=== PATIENT | male | born 1975 | race Caucasian/White ===

== ENCOUNTER 2016-08-03 11:31 | Inpatient (IN) ==
[2016-08-03] MEDS ORDERED: Ondansetron 4 MG/2 ML VIAL IVP PRN (15:00)
[2016-08-03] MEDS ORDERED: Naloxone 0.4 MG/ML INJ IVP PRN (15:00)
[2016-08-03] MEDS ORDERED: *HR* Morphine 2 MG/ML SYRINGE IVP PRN (15:00)
[2016-08-03] MEDS ORDERED: Acetaminophen 325 MG TABLET PO PRN (15:00)
[2016-08-03] MEDS ORDERED: Levofloxacin 500 MG/100 ML 500 MG/100 ML BAG IVPB ONE (15:02)
--- NOTE | 2016-08-03 15:09 | Internal Med History&Physical ---
Date of Encounter: 08/03/16 Time of Encounter: 15:09 Assessment and Plan (1) Healthcare-associated pneumonia Current visit: Yes Status: Acute Patient presents with cough, chest congestion and shortness of breath. Chest x- ray shows right basal infiltrates, per ER study, image not available. Continue broad-spectrum IV antibiotics and de-escalate after blood culture results. Continue supplemental oxygen. Supportive care. (2) Hyperkalemia Current visit: Yes Status: Acute Patient noted to have serum potassium of 6, received medical treatment with albuterol, D50, insulin and calcium gluconate in the emergency room. Repeat potassium is noted to be 6.6, will give 30 g Kayexalate at this time. Patient is at risk for ventricular arrhythmias from hyperkalemia, continue telemetry monitoring. (3) Chronic CHF Current visit: Yes Status: Chronic Qualifiers: Congestive heart failure type: diastolic Qualified Code(s): I50.32 - Chronic diastolic (congestive) heart failure (4) Essential hypertension Current visit: Yes Status: Chronic (5) ESRD (end stage renal disease) on dialysis Current visit: Yes Status: Chronic Nephrology consulted for continued hemodialysis needs while in the hospital. (6) Hyperlipidemia Current visit: Yes Status: Chronic Qualifiers: Hyperlipidemia type: mixed hyperlipidemia Qualified Code(s): E78.2 - Mixed hyperlipidemia Internal Medicine - H&P: HPI Chief complaint: Cough, chest pain Admitted From: Emergency Dept Plans for Post Hospital Care: Home History of present illness: Mr. Steele is a 41 year old male with history of end-stage renal disease on hemodialysis, hypertension was sent from [facility] ER with complaints of cough and shortness of breath. Patient is currently very drowsy due to having a bad night 's sleep and receiving morphine for chest pain, but is able to provide some history. Patient has had no missed sessions of hemodialysis in the last week. He started having dry hacking cough associated with dyspnea, worse on exertion that he reports only started yesterday. His symptoms were associated with retrosternal chest pain, worse on coughing, 5/10 in intensity, nonradiating, burning type of chest pain, currently relieved with IV morphine received in the emergency room. His chest pain only started this morning and is currently resolved. No reported fever, chills, palpitations, leg swelling, nausea or vomiting. No dizziness or syncope. Past Med Surg Social Fam HX - Past Medical History Medical history: CHF (Chronic diastolic CHF), dialysis, hyperlipidemia, hypertension, renal disease, valvular heart disease Psychiatric history: no psych history - Past Surgical History Surgical History: appendectomy, cholecystectomy, other (Left forearm AV fistula) - Social History Smoking Status: Never smoker Smokeless Tobacco Status: No Alcohol use: none Drug use: none Occupational status: disabled Current living situation: Home, With Family Activity Level: Independent ambulation Recent Out of Country Travel Within the Last 8 Weeks: No Exposure or Possible Exposure to Illness During Travel: No - Family History Father Hx Family Cardiac Disorders: Yes (Coronary artery disease) Internal Medicine - H&P: Meds Oxycodone HCl/Acetaminophen [Percocet 7.5-325 mg Tablet] 1 tab PO Q6H PRN [History] TraMADol [Ultram] 50 mg PO QID PRN 12/30/15 [History] Carvedilol [Coreg] 25 mg PO BID #60 tablet 01/01/16 [Rx] Gabapentin [Neurontin] 800 mg PO QID PRN 03/21/16 [History] Amlodipine [Norvasc] 5 mg PO BID 08/04/16 [History] Aspirin 81 mg PO DAILY 08/04/16 [History] B Complex W-C No.20/Folic Acid [Nephrocaps Softgel] 1 mg PO DAILY 08/04/16 [ History] Esomeprazole Magnesium [Nexium] 40 mg PO DAILY 08/04/16 [History] Furosemide [Lasix] 40 mg PO BID 08/04/16 [History] Hydrochlorothiazide 25 mg PO DAILY 08/04/16 [History] Lisinopril [Zestril] 10 mg PO DAILY 08/04/16 [History] Megestrol Acetate [Megace] 40 mg PO BID 08/04/16 [History] Mycophenolate Sodium (DR) [Myfortic] 180 mg PO BID 08/04/16 [History] Sulfamethoxazole/Trimeth SS [Bactrim] 1 each PO MOWEFR 08/04/16 [History] Valsartan/Hydrochlorothiazide [Diovan Hct 160-25 mg Tablet] 1 each PO DAILY 04/12 [History] Zolpidem [Ambien] 10 mg PO HS PRN 08/04/16 [History] Allergies No Known Allergies Allergy (Verified 08/04/16 09:46) All Systems PM: A 10-system review of systems was performed and is negative for pertinent findings except as documented above in the HPI. - Constitutional Constitutional: no chills, no fever(s), no night sweats - EENT Eyes: no change in vision, no discharge, no pain, no photophobia Ears: no ear discharge, no ear pain, no tinnitus Nose, mouth and throat: no dysphagia, no nasal discharge, no neck pain, no sore throat - Cardiovascular Cardiovascular ROS IM: chest pain, edema - Respiratory Respiratory: cough, dyspnea, dyspnea on exertion, chest congestion - Gastrointestinal Gastrointestinal: no abdominal pain, no diarrhea, no hematemesis, no hematochezia, no melena, no nausea, no vomiting - Musculoskeletal Musculoskeletal ROS IM: no numbness, no tingling - Integumentary Integumentary IM: no rash, no unusual bruising - Neurological Neurological ROS: no confusion, no convulsions, no focal weakness, no numbness, no tingling, no tremor(s) - Hematologic/Lymphatic Hematologic/Lymphatic: no easy bruising - Head Head exam: Present: atraumatic, normocephalic - Eye Eye exam: Present: PERRL, conjuntiva pink, sclera anicteric Pupils: Present: PERRL - Neck Neck exam general surgery: Present: supple, trachea midline. Absent: lymphadenopathy - Respiratory Respiratory exam: Present: rales (Bibasal inspiratory crackles). Absent: accessory muscle use, rhonchi, wheezes - Cardiovascular Cardiovascular exam: Present: RRR, +S1, +S2, systolic murmur. Absent: diastolic murmur, gallop, rubs - GI/Abdominal GI/Abdominal exam: Present: normal bowel sounds, soft, no peritoneal signs. Absent: distended, tenderness - Extremities Exam Extremities exam: Present: warm, radial pulses palpable and symetrical. Absent : calf tenderness, cyanotic, pedal edema - Neurological Exam Neurological exam: Present: CN II-XII intact, oriented X3, no focal deficits. Absent: pronater drift, facial droop, speech deficit - Skin Skin exam: Present: dry, intact Internal Med - H&P Results - Labs CBC & Chem 7: 08/04/16 04:36 08/04/16 04:36 - EKG Data -: EKG Interpreted by Myself EKG shows normal: sinus rhythm - EKG Data EKG comments: 08/04/16 16:46 Normal sinus rhythm, left ventricular hypertrophy with repolarization abnormalities, peaked T waves in anterior and lateral leads, left atrial enlargement
[2016-08-03] MEDS ORDERED: Piperacillin/Tazobactam 3.375 GM in D5% in Water (Mini-Bag+) 100 ML IVPB SCH ×2 (16:00)
[2016-08-03] MEDS ORDERED: Vancomycin 1,250 MG in D5% in Water 250 ML IVPB ONE (16:00)
[2016-08-03 16:43] LABS: Calcium 8.9 mg/dL (8.6-10.8)
[2016-08-03 16:45] LABS: Potassium 6.6 mEq/L (3.5-4.5)
[2016-08-03] MEDS: Calcium Acetate 667 MG CAPSULE PO SCH (17:11)
[2016-08-03] MEDS: Piperacillin/Tazobactam 3.375 GM in D5% in Water (Mini-Bag+) 100 ML IVPB SCH (20:58)
[2016-08-03] MEDS: Gabapentin 400 MG CAPSULE PO SCH (20:59)
[2016-08-03] MEDS: amLODIPine 5 MG TABLET PO SCH (20:59)
[2016-08-03] MEDS: *HR* HYDROcodone/Acet 5/325 mg TABLET PO PRN (21:47)
[2016-08-04] MEDS ORDERED: *HR* Metoprolol 5 MG/5 ML VIAL IVP PRN (01:40)
[2016-08-04 05:11] LABS: Basophils # 0.1 K/mcL (0.0-0.2); Basophils % 0.8 %; Eosinophils # 0.3 K/mcL (0.0-0.6); Eosinophils % 3.4 %; Hematocrit 28.6 % (37.5-50.1); Hemoglobin 9.6 g/dL (12.9-16.9); Immature Granulocytes % 0.3 % (0-4); Lymphocytes # 0.8 K/mcL (0.6-4.6); Mean Corpuscular HGB Conc 33.6 g/dL (31.6-35.5); Mean Corpuscular Hemoglobin 28.9 pg (28.0-33.3); Mean Corpuscular Volume 86.1 fL (83.0-100.0); Mean Platelet Volume 9.4 fL (9.4-12.4); Monocytes # 0.8 K/mcL (0.0-1.3); Monocytes % 7.9 %; Neutrophils # 7.7 K/mcL (1.6-8.9); Platelet Count 203 K/mcL (140-400); Red Blood Count 3.32 M/mcL (4.19-5.50); Red Cell Distribution Width 15.6 % (11.5-14.5); Segmented Neutrophils % 79.6 %
[2016-08-04 05:27] LABS: Calcium 8.6 mg/dL (8.6-10.8); Potassium 5.3 mEq/L (3.5-4.5)
[2016-08-04] MEDS: *HR* Heparin 5,000 UNIT/ML VIAL SQ SCH ×2 (05:33→17:14)
[2016-08-04] MEDS ORDERED: *HR* Enoxaparin 40 MG/0.4 ML SYRINGE SQ SCH (06:00)
--- NOTE | 2016-08-04 08:15 | Nephrology Consult Note ---
Date of Encounter: 08/04/16 Time of Encounter: 08:13 Assessment and Plan (1) Benign hypertension with ESRD (end-stage renal disease) Current Visit: Yes Status: Acute Patient will receive dialysis today. He will be dialyzed on a 2K bath. On removal of 3-4 kg as tolerated. Aranesp will be started for management of his anemia. Following dialysis if his blood pressures not improve we may need to make additional adjustments in his antihypertensive medications. His blood pressure medication should not be held on dialysis days. (2) Anemia in chronic kidney disease (CKD) Current Visit: Yes Status: Acute (3) Nausea alone Current Visit: Yes Status: Acute (4) Pulmonary vascular congestion Current Visit: Yes Status: Acute (5) ESRD (end stage renal disease) on dialysis Current Visit: No Status: Chronic History of Present Illness - History of Present Illness This is a 41-year-old male with end-stage renal disease related to hypertension and a failed renal transplant. He receives dialysis every Thursday in [place]. Patient was admitted yesterday with 1 day history of nausea and headache. He denies any vomiting. He had some associated shortness of breath and chest discomfort. Today he says he feels better. He denies any nausea. He denies any shortness of breath or abdominal pain. Chest x-ray showed cardiomegaly and some vascular congestion. There is no infiltrate noted. Blood pressure has been labile. Patient does have a history of poorly controlled blood pressure due to poor compliance with medications. He also has a history of chronic hyperphosphatemia due to poor compliance. Patient denies any fever or chills. He denies any sputum production. Past Med Surg Social Fam HX - Past Medical History Medical history: CHF, dialysis, hypertension, renal disease, valvular heart disease Psychiatric history: no psych history - Past Surgical History Surgical History: appendectomy, cholecystectomy, other - Social History Smoking Status: Never smoker Smokeless Tobacco Status: No Alcohol use: none Drug use: none Medications and Allergies Oxycodone HCl/Acetaminophen [Percocet 7.5-325 mg Tablet] 1 tab PO Q8H PRN [History] TraMADol [Ultram] 50 mg PO QID PRN 12/30/15 [History] Amlodipine [Norvasc] 10 mg PO BID #60 tablet 01/01/16 [Rx] Calcium Acetate [Phos-LO] 2,668 mg PO TIDWM #90 capsule 01/01/16 [Rx] Carvedilol [Coreg] 25 mg PO BID #60 tablet 01/01/16 [Rx] Cinacalcet [Sensipar] 60 mg PO DAILY #30 tablet 01/01/16 [Rx] Isosorbide DInitrate [Isordil] 20 mg PO TIDAC 90 Days 01/01/16 [Rx] Minoxidil 5 mg PO BID #60 tablet 01/01/16 [Rx] Omeprazole [PriLOSEC] 40 mg PO DAILY@30 #30 capsule 01/01/16 [Rx] Darbepoetin [Aranesp] 60 mcg SQ QWEEK 03/21/16 [History] Gabapentin [Neurontin] 800 mg PO TID 03/21/16 [History] Sirolimus [Rapamune] 1 mg PO DAILY 03/21/16 [History] Losartan [Cozaar] 12.5 mg PO DAILY 30 Days 03/22/16 [Rx] Triamcinolone Acet 0.1% CRM [Kenalog] 1 appl TP BID 04/27/16 [History] Sulfamethoxazole/Trimeth DS [Bactrim DS] 1 each PO BID 10 Days 06/07/16 [Rx] Allergies No Known Allergies Allergy (Verified 04/27/16 17:01) Review of Systems Constitutional: as per HPI Eyes: bilateral: blurred vision (patient denies), diplopia (patient denies) Nose, mouth and throat: no dizziness, no headache(s) Cardiovascular: as per HPI, chest pain, dyspnea, dyspnea on exertion Respiratory: as per HPI, dyspnea, dyspnea on exertion Gastrointestinal: as per HPI, nausea Musculoskeletal: no muscle weakness, no numbness Integumentary: no hirsutism, no striae Neurological: as per HPI, headache(s) Psychiatric: no depression, no difficulty concentrating Endocrine: as per HPI Hematologic/Lymphatic: no easy bruising, no lymphadenopathy Exam - Vital Signs Vital signs: Initial Vital Signs Temp Pulse Resp BP Pulse Ox 97.6 F 91 16 167/115 97 08/03/16 16:03 08/03/16 16:03 08/03/16 16:03 08/03/16 16:03 08/03/16 16:03 Vital Signs - Last 8 Hours Temp Pulse Resp BP Pulse Ox 08/04/16 07:24 98.3 F 101 15 158/114 96 08/04/16 06:01 97.6 F 97 16 133/62 97 08/04/16 03:17 91 133/92 97 08/04/16 02:32 90 150/102 96 08/04/16 02:25 95 149/107 97 Intake and Output 08/03/16 08/04/16 08/04/16 23:59 07:59 15:59 Intake Total 340 / 340 300 / 300 Output Total 0 / 0 Balance 340 / 340 300 / 300 Intake: Oral 340 / 340 300 / 300 Output: Urine 0 / 0 Other: Meal Dinner Percent of Meal Consumed 95% # Bowel Movements 2 # Bowel Movement Diapers 4 - General Appearance Exam: The patient is alert and oriented. He is in no acute distress. Cards or bruits. Lungs essentially clear to auscultation. No wheezing rales or rhonchi. Heart regular rate and rhythm with a 2/6 systolic ejection murmur. Abdomen shows normal bowel sounds to bruits masses or organomegaly or tenderness. Lower extremities show no significant peripheral edema. There is a functioning AV fistula in the left arm. Results - Lab Results 08/04/16 04:36 08/04/16 04:36 Most recent lab results Calcium 8.6 mg/dL (8.6-10.8) 08/04/16 04:36 Consult Discharge Plan - Plan Referrals: Sanjuana Miner MD [Primary Care Provider] -
[2016-08-04] MEDS ORDERED: 0.9 % Sodium Chloride 250 ML IV PRN (08:19)
--- NOTE | 2016-08-04 08:25 | Internal Med Progress Note ---
Date of Encounter: 08/04/16 Time of Encounter: 08:24 - Assessment and plan (1) Healthcare-associated pneumonia Current Visit: Yes Status: Acute Assessment and plan: f/up blood cultures and continue IV antibiotics; improving clinically; continue PRN supplemental O2; (2) Anemia in chronic kidney disease (CKD) Current Visit: Yes Status: Chronic (3) Hyperkalemia Current Visit: Yes Status: Acute Assessment and plan: improved with Kayexalate; also to receive HD today; (4) Chronic CHF Current Visit: Yes Status: Chronic Qualifiers: Congestive heart failure type: diastolic Qualified Code(s): I50.32 - Chronic diastolic (congestive) heart failure (5) ESRD (end stage renal disease) on dialysis Current Visit: Yes Status: Chronic Assessment and plan: Nephrology consulted for HD needs, will get dialyzed today; (6) Essential hypertension Current Visit: Yes Status: Chronic (7) Hyperlipidemia Current Visit: Yes Status: Chronic Qualifiers: Hyperlipidemia type: mixed hyperlipidemia Qualified Code(s): E78.2 - Mixed hyperlipidemia - Subjective Interval history: Feels better; intermittent mild chest pain and cough; no dyspnea, requiring 3L/ min O2; awaiting HD today; - Constitutional Vitals: Temp Pulse Resp BP Pulse Ox 98.3 F 101 15 158/114 96 08/04/16 07:24 08/04/16 07:24 08/04/16 07:24 08/04/16 07:24 08/04/16 07:24 General appearance: Present: A&O X 3, answers questions appropriately - Head Head exam: Present: atraumatic, normocephalic - Neck Neck exam general surgery: Present: supple, trachea midline. Absent: lymphadenopathy - Respiratory Respiratory exam: Present: rales (right basal inspiratory crackles). Absent: accessory muscle use, rhonchi, wheezes - Cardiovascular Cardiovascular exam: Present: RRR, +S1, +S2, systolic murmur, tachycardia. Absent: diastolic murmur, gallop, rubs - GI/Abdominal GI/Abdominal exam: Present: normal bowel sounds, soft, no peritoneal signs. Absent: distended, tenderness - Extremities Exam Extremities exam: Present: pedal edema, warm, radial pulses palpable and symetrical. Absent: calf tenderness, cyanotic Internal Medicine: Result - Labs CBC & Chem 7: 08/04/16 04:36 08/04/16 04:36 Labs: Short CBC 08/04/16 Range/Units 04:36 WBC 9.6 (4.3-11.1) K/mcL Hgb 9.6 L (12.9-16.9) g/dL Hct 28.6 L (37.5-50.1) % Plt Count 203 (140-400) K/mcL Neutrophils # 7.7 (1.6-8.9) K/mcL BMP 08/03/16 08/03/16 08/04/16 16:18 22:49 04:36 Sodium 135 L 138 Potassium 6.6 H* 5.3 H D 5.3 H Chloride 97 L 96 L Carbon Dioxide 21 25 BUN 59 H 69 H Creatinine 11.17 H 12.63 H Glucose 81 86 Calcium 8.9 8.6 - Impressions Impressions Chest X-Ray 08/03/16 15:01 IMPRESSION: 1. Borderline cardiomegaly with vascular congestion. D/ / Scott Greenberg MD / Scott Greenberg MD Interpreting Provider: Scott Greenberg MD Consult Discharge Plan - Plan Referrals: Sanjuana Miner MD [Primary Care Provider] -
[2016-08-04 13:12] LABS: Hepatitis B Surface Antibody 2.16 mIU/mL; Hepatitis B Surface Antigen Nonreactive (Nonreactive)
[2016-08-04] MEDS: Gabapentin 400 MG CAPSULE PO SCH ×3 (15:07→22:18)
[2016-08-04] MEDS: amLODIPine 5 MG TABLET PO SCH ×2 (15:09→22:19)
[2016-08-04] MEDS: Piperacillin/Tazobactam 3.375 GM in D5% in Water (Mini-Bag+) 100 ML IVPB SCH (15:12)
[2016-08-04] MEDS ORDERED: Vancomycin 500 MG in D5% in Water (Mini-Bag+) 100 ML IVPB ONE (16:00)
[2016-08-04] MEDS: Calcium Acetate 667 MG CAPSULE PO SCH ×3 (18:09→23:59)
[2016-08-04] MEDS: *HR* HYDROcodone/Acet 5/325 mg TABLET PO PRN (22:18)
[2016-08-05] MEDS ORDERED: Piperacillin/Tazobactam 3.375 GM in D5% in Water (Mini-Bag+) 100 ML IVPB SCH (05:00)
[2016-08-05] MEDS: *HR* Heparin 5,000 UNIT/ML VIAL SQ SCH ×2 (05:07→17:36)
[2016-08-05 05:30] LABS: Calcium 9.3 mg/dL (8.6-10.8); Potassium 5.4 mEq/L (3.5-4.5)
[2016-08-05] MEDS ORDERED: Aminoglycoside Consult 1 EACH MC ONE (09:25)
[2016-08-05] MEDS: Gabapentin 400 MG CAPSULE PO SCH ×3 (09:47→20:54)
[2016-08-05] MEDS: amLODIPine 5 MG TABLET PO SCH ×2 (09:48→20:55)
[2016-08-05] MEDS: Calcium Acetate 667 MG CAPSULE PO SCH ×3 (10:06→17:35)
--- NOTE | 2016-08-05 11:14 | Internal Med Progress Note ---
Date of Encounter: 08/05/16 Time of Encounter: 11:11 - Assessment and plan (1) Benign hypertension with ESRD (end-stage renal disease) Current Visit: Yes Status: Acute (2) Hyperkalemia Current Visit: Yes Status: Acute (3) Pulmonary vascular congestion Current Visit: Yes Status: Acute (4) Chronic CHF Current Visit: Yes Status: Chronic Qualifiers: Congestive heart failure type: diastolic Qualified Code(s): I50.32 - Chronic diastolic (congestive) heart failure (5) ESRD (end stage renal disease) on dialysis Current Visit: Yes Status: Chronic Assessment and plan: no pneumonia reported on chest imaging, will stop vanc and zosyn. no clinincal signs of lung infection. continue monitor potassium, will give low dose kayexalate nephrology following for ESRD on hemodialysis. - Subjective Interval history: f/u for hyperkalemia, esrd, pt reports improvement today. - Constitutional Vitals: Temp Pulse Resp BP Pulse Ox 98.8 F 93 16 129/81 96 08/05/16 06:00 08/05/16 06:00 08/05/16 06:00 08/05/16 06:00 08/05/16 06:00 General appearance: Present: A&O X 3, answers questions appropriately - Head Head exam: Present: atraumatic, normocephalic - Eye Eye exam: Present: PERRL, conjuntiva pink, sclera anicteric Pupils: Present: PERRL - Neck Neck exam general surgery: Present: supple, trachea midline. Absent: lymphadenopathy - Respiratory Respiratory exam: Present: CTAB. Absent: accessory muscle use, rales, rhonchi, wheezes - Cardiovascular Cardiovascular exam: Present: RRR, +S1, +S2. Absent: diastolic murmur, gallop, rubs, systolic murmur - GI/Abdominal GI/Abdominal exam: Present: normal bowel sounds, soft, no peritoneal signs. Absent: distended, tenderness - Extremities Exam Extremities exam: Present: warm, radial pulses palpable and symetrical. Absent : calf tenderness, cyanotic, pedal edema - Neurological Exam Neurological exam: Present: CN II-XII intact, oriented X3, no focal deficits. Absent: pronater drift, facial droop, speech deficit - Skin Skin exam: Present: dry, intact Internal Medicine: Result - Labs CBC & Chem 7: 08/04/16 04:36 08/05/16 04:58 Labs: BMP 08/05/16 04:58 Sodium 139 Potassium 5.4 H Chloride 98 Carbon Dioxide 27 BUN 51 H D Creatinine 9.94 H Glucose 114 H Calcium 9.3 Consult Discharge Plan - Plan Referrals: Sanjuana Miner MD [Primary Care Provider] -
[2016-08-05] MEDS: *HR* HYDROcodone/Acet 5/325 mg TABLET PO PRN (13:33)
[2016-08-06] MEDS: *HR* Heparin 5,000 UNIT/ML VIAL SQ SCH ×2 (05:02→20:07)
[2016-08-06 05:34] LABS: Basophils # 0.1 K/mcL (0.0-0.2); Basophils % 0.9 %; Eosinophils # 0.4 K/mcL (0.0-0.6); Eosinophils % 4.6 %; Hematocrit 27.6 % (37.5-50.1); Hemoglobin 9.2 g/dL (12.9-16.9); Immature Granulocytes % 0.8 % (0-4); Immature Platelets 1.8 % (1.1-6.1); Lymphocytes # 1.1 K/mcL (0.6-4.6); Lymphocytes % 12.6 %; Mean Corpuscular HGB Conc 33.3 g/dL (31.6-35.5); Mean Corpuscular Hemoglobin 28.8 pg (28.0-33.3); Mean Corpuscular Volume 86.5 fL (83.0-100.0); Mean Platelet Volume 9.6 fL (9.4-12.4); Monocytes # 0.8 K/mcL (0.0-1.3); Monocytes % 8.9 %; Neutrophils # 6.5 K/mcL (1.6-8.9); Platelet Count 254 K/mcL (140-400); Red Blood Count 3.19 M/mcL (4.19-5.50); Red Cell Distribution Width 15.7 % (11.5-14.5); Segmented Neutrophils % 72.2 %
[2016-08-06 05:46] LABS: Calcium 9.1 mg/dL (8.6-10.8)
[2016-08-06] MEDS: Gabapentin 400 MG CAPSULE PO SCH ×3 (08:49→20:07)
--- NOTE | 2016-08-06 11:13 | Internal Med Progress Note ---
Date of Encounter: 08/06/16 Time of Encounter: 11:11 - Assessment and plan (1) Benign hypertension with ESRD (end-stage renal disease) Current Visit: Yes Status: Acute (2) Hyperkalemia Current Visit: Yes Status: Acute (3) Pulmonary vascular congestion Current Visit: Yes Status: Acute (4) Chronic CHF Current Visit: Yes Status: Chronic Qualifiers: Congestive heart failure type: diastolic Qualified Code(s): I50.32 - Chronic diastolic (congestive) heart failure (5) ESRD (end stage renal disease) on dialysis Current Visit: Yes Status: Chronic Assessment and plan: Hyperkalemia persists, will stop losartan. Patient scheduled for HD today, electrolytes will be corrected at that time. Nephrology following. Monitor BP, continue Norvasc, lopressor and coreg. Pt says he is eager to go home, i explained that his electrolytes still require inpatient clinical monitoring for improvement. - Subjective Interval history: f/u for hyperkalemia, esrd, pt reports feeling better today. - Constitutional Vitals: Temp Pulse Resp BP Pulse Ox 97.8 F 88 24 127/86 96 08/06/16 08:38 08/06/16 08:38 08/06/16 08:38 08/06/16 05:00 08/06/16 09:08 General appearance: Present: A&O X 3, answers questions appropriately - Head Head exam: Present: atraumatic, normocephalic - Eye Eye exam: Present: PERRL, conjuntiva pink, sclera anicteric Pupils: Present: PERRL - Neck Neck exam general surgery: Present: supple, trachea midline. Absent: lymphadenopathy - Respiratory Respiratory exam: Present: CTAB. Absent: accessory muscle use, rales, rhonchi, wheezes - Cardiovascular Cardiovascular exam: Present: RRR, +S1, +S2. Absent: diastolic murmur, gallop, rubs, systolic murmur - GI/Abdominal GI/Abdominal exam: Present: normal bowel sounds, soft, no peritoneal signs. Absent: distended, tenderness - Extremities Exam Extremities exam: Present: warm, radial pulses palpable and symetrical. Absent : calf tenderness, cyanotic, pedal edema - Neurological Exam Neurological exam: Present: CN II-XII intact, oriented X3, no focal deficits. Absent: pronater drift, facial droop, speech deficit - Skin Skin exam: Present: dry, intact Internal Medicine: Result - Labs CBC & Chem 7: 08/06/16 05:06 08/06/16 05:06 Labs: Short CBC 08/06/16 Range/Units 05:06 WBC 9.0 (4.3-11.1) K/mcL Hgb 9.2 L (12.9-16.9) g/dL Hct 27.6 L (37.5-50.1) % Plt Count 254 (140-400) K/mcL Neutrophils # 6.5 (1.6-8.9) K/mcL BMP 08/06/16 05:06 Sodium 139 Potassium 6.0 H Chloride 99 Carbon Dioxide 23 BUN 66 H D Creatinine 12.15 H Glucose 86 Calcium 9.1 Consult Discharge Plan - Plan Referrals: Sanjuana Miner MD [Primary Care Provider] -
[2016-08-06] MEDS: *HR* HYDROcodone/Acet 5/325 mg TABLET PO PRN (12:37)
[2016-08-06] MEDS: amLODIPine 5 MG TABLET PO SCH ×2 (12:38→20:07)
[2016-08-06] MEDS: Calcium Acetate 667 MG CAPSULE PO SCH ×3 (12:40→20:07)
--- NOTE | 2016-08-06 13:23 | Nephrology Progress Note ---
Date of Encounter: 08/06/16 Time of Encounter: 13:22 - Assessment and Plan (1) Benign hypertension with ESRD (end-stage renal disease) Current Visit: Yes Status: Acute Patient will undergo dialysis today on a 2K bath. His blood pressures under better control. Overall he is appears stable from a renal perspective. (2) Anemia in chronic kidney disease (CKD) Current Visit: Yes Status: Chronic (3) Nausea alone Current Visit: Yes Status: Acute (4) Pulmonary vascular congestion Current Visit: Yes Status: Acute (5) ESRD (end stage renal disease) on dialysis Current Visit: Yes Status: Chronic Subjective Interval history: Patient reports no complaints. He denies any chest pain or shortness of breath. Potassium 6.0 today. He will undergo his usual dialysis today. He did have some Kayexalate earlier today. Objective - Vital Signs Vital signs: Vital Signs Temp Pulse Resp BP Pulse Ox 08/06/16 09:08 96 08/06/16 08:38 97.8 F 88 24 96 08/06/16 05:00 92 16 127/86 98 08/05/16 21:27 98.2 F 100 17 148/92 08/05/16 15:54 97.9 F 86 17 132/82 99 Intake and Output 08/05/16 08/06/16 08/06/16 23:59 07:59 15:59 Intake Total 0 / 0 120 / 120 Output Total 0 / 0 Balance 0 / 0 120 / 120 Intake: Oral 0 / 0 120 / 120 Output: Urine 0 / 0 Other: Meal Dinner Breakfast Percent of Meal Consumed 50% 95% # Bowel Movements 2 - General Appearance Exam: Patient is alert and oriented. He is in no acute distress. Blood pressure is improved at 127/86. Lungs sounds otherwise clear. Heart regular rate and rhythm with a 2/6 systolic ejection murmur. Abdomen is benign. There is no peripheral edema. There is a functioning AV fistula in the left arm. - Lab 08/06/16 05:06 08/06/16 05:06 Most recent lab results Calcium 9.1 mg/dL (8.6-10.8) 08/06/16 05:06 Consult Discharge Plan - Plan Referrals: Sanjuana Miner MD [Primary Care Provider] -
[2016-08-06] MEDS ORDERED: 0.9 % Sodium Chloride 250 ML IV PRN (13:24)
[2016-08-06] MEDS ORDERED: 0.9 % Sodium Chloride 2,000 ML ONE (18:50)
[2016-08-07] MEDS: *HR* HYDROcodone/Acet 5/325 mg TABLET PO PRN ×3 (01:33→21:52)
[2016-08-07 05:12] LABS: Basophils # 0.1 K/mcL (0.0-0.2); Basophils % 0.7 %; Eosinophils # 0.3 K/mcL (0.0-0.6); Eosinophils % 2.9 %; Hematocrit 29.1 % (37.5-50.1); Hemoglobin 9.5 g/dL (12.9-16.9); Immature Granulocytes % 0.3 % (0-4); Lymphocytes # 0.8 K/mcL (0.6-4.6); Lymphocytes % 9.2 %; Mean Corpuscular HGB Conc 32.6 g/dL (31.6-35.5); Mean Corpuscular Hemoglobin 28.8 pg (28.0-33.3); Mean Corpuscular Volume 88.2 fL (83.0-100.0); Mean Platelet Volume 9.6 fL (9.4-12.4); Monocytes # 0.9 K/mcL (0.0-1.3); Monocytes % 9.8 %; Platelet Count 233 K/mcL (140-400); Red Cell Distribution Width 15.9 % (11.5-14.5); Segmented Neutrophils % 77.1 %
[2016-08-07] MEDS: *HR* Heparin 5,000 UNIT/ML VIAL SQ SCH ×2 (05:20→18:42)
[2016-08-07 05:27] LABS: Calcium 9.2 mg/dL (8.6-10.8); Potassium 5.7 mEq/L (3.5-4.5)
[2016-08-07] MEDS: Calcium Acetate 667 MG CAPSULE PO SCH ×3 (09:03→16:14)
[2016-08-07] MEDS: Gabapentin 400 MG CAPSULE PO SCH ×3 (09:03→21:51)
[2016-08-07] MEDS: amLODIPine 5 MG TABLET PO SCH ×2 (09:04→21:51)
--- NOTE | 2016-08-07 09:33 | Internal Med Progress Note ---
Date of Encounter: 08/07/16 Time of Encounter: 09:31 - Assessment and plan (1) Benign hypertension with ESRD (end-stage renal disease) Current Visit: Yes Status: Acute (2) Hyperkalemia Current Visit: Yes Status: Acute (3) Pulmonary vascular congestion Current Visit: Yes Status: Acute (4) Chronic CHF Current Visit: Yes Status: Chronic Qualifiers: Congestive heart failure type: diastolic Qualified Code(s): I50.32 - Chronic diastolic (congestive) heart failure (5) ESRD (end stage renal disease) on dialysis Current Visit: Yes Status: Chronic Assessment and plan: Hyperkalemia persists, will give 30g of Kayexalate today. continue to monitor potassium. continue Scheduled HD, Nephrology following. Monitor BP, continue Norvasc, lopressor and coreg. Pt says he is eager to go home, i explained that his electrolytes still require inpatient clinical monitoring for improvement. - Subjective Interval history: f/u for hyperkalemia, esrd, pt reports feeling better today. - Constitutional Vitals: Temp Pulse Resp BP Pulse Ox 98.4 F 101 18 147/97 96 08/07/16 08:00 08/07/16 08:00 08/07/16 08:00 08/07/16 08:00 08/07/16 09:11 General appearance: Present: A&O X 3, answers questions appropriately - Head Head exam: Present: atraumatic, normocephalic - Eye Eye exam: Present: PERRL, conjuntiva pink, sclera anicteric Pupils: Present: PERRL - Neck Neck exam general surgery: Present: supple, trachea midline. Absent: lymphadenopathy - Respiratory Respiratory exam: Present: CTAB. Absent: accessory muscle use, rales, rhonchi, wheezes - Cardiovascular Cardiovascular exam: Present: RRR, +S1, +S2. Absent: diastolic murmur, gallop, rubs, systolic murmur - GI/Abdominal GI/Abdominal exam: Present: normal bowel sounds, soft, no peritoneal signs. Absent: distended, tenderness - Extremities Exam Extremities exam: Present: warm, radial pulses palpable and symetrical. Absent : calf tenderness, cyanotic, pedal edema - Neurological Exam Neurological exam: Present: CN II-XII intact, oriented X3, no focal deficits. Absent: pronater drift, facial droop, speech deficit - Skin Skin exam: Present: dry, intact Internal Medicine: Result - Labs CBC & Chem 7: 08/07/16 04:49 08/07/16 04:49 Labs: Short CBC 08/07/16 Range/Units 04:49 WBC 9.1 (4.3-11.1) K/mcL Hgb 9.5 L (12.9-16.9) g/dL Hct 29.1 L (37.5-50.1) % Plt Count 233 (140-400) K/mcL Neutrophils # 7.0 (1.6-8.9) K/mcL BMP 08/07/16 04:49 Sodium 142 Potassium 5.7 H Chloride 100 Carbon Dioxide 31 H BUN 37 H D Creatinine 7.51 H Glucose 102 H Calcium 9.2 Consult Discharge Plan - Plan Instructions: Heart Failure (DC), Hemodialysis (DC), Hemodialysis (GEN), Dialysis Diet (DC), Dialysis Diet (GEN), Arteriovenous Fistula Creation for Hemodialysis (DC), Chronic Hypertension (DC), Anemia (GEN) Referrals: Sanjuana Miner MD [Primary Care Provider] -
--- NOTE | 2016-08-07 12:08 | Nephrology Progress Note ---
Date of Encounter: 08/07/16 Time of Encounter: 12:00 - Assessment and Plan (1) ESRD (end stage renal disease) on dialysis Current Visit: Yes Status: Chronic HD tomorrow, keeping MWF schedule. If discharged will dialyze at [place]. Subjective Interval history: Sleeeping, easily aroused. States feels good, wants to go home. Objective - Vital Signs Vital signs: Vital Signs Temp Pulse Resp BP Pulse Ox 08/07/16 11:16 147/90 08/07/16 09:11 96 08/07/16 08:00 98.4 F 101 18 147/97 96 08/07/16 02:42 98.2 F 101 18 137/95 95 08/06/16 21:00 95 08/06/16 19:39 98.5 F 111 16 143/94 95 08/06/16 18:05 97.6 F 20 146/76 08/06/16 18:00 140/72 08/06/16 17:45 131/67 08/06/16 17:30 117/65 08/06/16 17:15 114/57 08/06/16 17:00 114/52 08/06/16 16:45 126/65 08/06/16 16:30 130/69 08/06/16 16:15 131/75 08/06/16 16:00 129/63 08/06/16 15:45 118/57 08/06/16 15:30 125/71 08/06/16 15:15 129/64 08/06/16 15:00 97.6 F 20 126/59 08/06/16 14:05 20 96 08/06/16 13:23 97.6 F 90 20 148/93 96 Intake and Output 08/06/16 08/07/16 08/07/16 23:59 07:59 15:59 Output Total 2600 / 2600 Balance -2600 / -2600 Output: Urine 0 / 0 Total Dialysis Output 2600 / 2600 Other: Meal Sandwhich, [place], Milk Percent of Meal Consumed 100% Weight 73.028 kg Hemodialysis Net Fluid 2000 Removed (mL) Patient Weight 08/07/16 23:59 Weight 73.028 kg - General Appearance General appearance: Present: well-developed, well-nourished, appears started age EENT: Present: mucous membranes moist Neck: Present: no JVD Respiratory: Present: wheezing Cardiology: Present: regular rate, regular rhythm Additional Comments: 2/6 systolic murmur Gastrointestinal: Present: normoactive bowel sounds, no tenderness Integumentary: Present: warm and dry Neurologic: Present: alert and oriented x3 Psychiatric: Present: mood/affect appropriate, cooperative - Lab 08/07/16 04:49 08/07/16 04:49 Most recent lab results Calcium 9.2 mg/dL (8.6-10.8) 08/07/16 04:49 Consult Discharge Plan - Plan Instructions: Heart Failure (DC), Hemodialysis (DC), Hemodialysis (GEN), Dialysis Diet (DC), Dialysis Diet (GEN), Arteriovenous Fistula Creation for Hemodialysis (DC), Chronic Hypertension (DC), Anemia (GEN) Referrals: Sanjuana Miner MD [Primary Care Provider] -
[2016-08-08 05:13] LABS: Basophils # 0.1 K/mcL (0.0-0.2); Basophils % 0.9 %; Eosinophils # 0.3 K/mcL (0.0-0.6); Eosinophils % 4.3 %; Hematocrit 27.7 % (37.5-50.1); Hemoglobin 9.1 g/dL (12.9-16.9); Immature Granulocytes % 0.3 % (0-4); Lymphocytes # 0.9 K/mcL (0.6-4.6); Lymphocytes % 11.4 %; Mean Corpuscular HGB Conc 32.9 g/dL (31.6-35.5); Mean Corpuscular Hemoglobin 29.3 pg (28.0-33.3); Mean Corpuscular Volume 89.1 fL (83.0-100.0); Mean Platelet Volume 9.4 fL (9.4-12.4); Monocytes # 0.7 K/mcL (0.0-1.3); Monocytes % 9.2 %; Neutrophils # 5.9 K/mcL (1.6-8.9); Platelet Count 220 K/mcL (140-400); Red Blood Count 3.11 M/mcL (4.19-5.50); Segmented Neutrophils % 73.9 %
[2016-08-08 05:25] LABS: Calcium 9.4 mg/dL (8.6-10.8); Potassium 5.6 mEq/L (3.5-4.5)
[2016-08-08] MEDS: *HR* Heparin 5,000 UNIT/ML VIAL SQ SCH ×2 (05:46→17:02)
[2016-08-08] MEDS: Calcium Acetate 667 MG CAPSULE PO SCH ×3 (08:04→17:02)
[2016-08-08] MEDS: *HR* HYDROcodone/Acet 5/325 mg TABLET PO PRN (08:04)
[2016-08-08] MEDS: Gabapentin 400 MG CAPSULE PO SCH ×3 (08:05→15:23)
[2016-08-08] MEDS: amLODIPine 5 MG TABLET PO SCH (08:05)
[2016-08-08] MEDS ORDERED: 0.9 % Sodium Chloride 250 ML IV PRN (08:46)
--- NOTE | 2016-08-08 08:46 | Nephrology Progress Note ---
Date of Encounter: 08/08/16 Time of Encounter: 08:45 - Assessment and Plan (1) Benign hypertension with ESRD (end-stage renal disease) Current Visit: Yes Status: Acute Patient has mild hyperkalemia. He will undergo dialysis today on a 2K bath. From a renal perspective he can be discharged home following dialysis today. (2) Anemia in chronic kidney disease (CKD) Current Visit: Yes Status: Chronic (3) Nausea alone Current Visit: Yes Status: Acute (4) Pulmonary vascular congestion Current Visit: Yes Status: Acute (5) ESRD (end stage renal disease) on dialysis Current Visit: Yes Status: Chronic Subjective Interval history: Patient has no new complaints. He continues to have some mild hyperkalemia. He is scheduled for his usual dialysis today. Objective - Vital Signs Vital signs: Vital Signs Temp Pulse Resp BP Pulse Ox 08/08/16 06:55 98.1 F 102 17 156/102 94 L 08/08/16 03:36 97.9 F 100 17 147/95 96 08/07/16 23:38 98.2 F 97 17 149/98 97 08/07/16 19:34 98.1 F 103 18 166/109 95 08/07/16 15:00 98.1 F 91 16 131/97 93 L 08/07/16 11:16 147/90 08/07/16 09:11 96 Intake and Output 08/07/16 08/08/16 08/08/16 23:59 07:59 15:59 Intake Total 490 / 490 480 / 480 Output Total 0 / 0 Balance 490 / 490 480 / 480 Intake: Oral 490 / 490 480 / 480 Output: Urine 0 / 0 Other: Meal Dinner Percent of Meal Consumed 80% # Voids 1 # Bowel Movements 1 Weight 74.48 kg Patient Weight 08/08/16 23:59 Weight 74.48 kg - General Appearance Exam: Patient is alert and oriented. He is in no acute distress. Lungsbreath sounds otherwise clear. Heart regular rhythm with a 2/6 systolic ejection murmur. Abdomen is benign. There is no lower extremity swelling. There is a functioning AV fistula in the left arm. - Lab 08/08/16 04:48 08/08/16 04:48 Most recent lab results Calcium 9.4 mg/dL (8.6-10.8) 08/08/16 04:48 Consult Discharge Plan - Plan Instructions: Heart Failure (DC), Hemodialysis (DC), Hemodialysis (GEN), Dialysis Diet (DC), Dialysis Diet (GEN), Arteriovenous Fistula Creation for Hemodialysis (DC), Chronic Hypertension (DC), Anemia (GEN) Referrals: Sanjuana Miner MD [Primary Care Provider] -
[2016-08-08 15:45] VITALS: BP 115/75
--- NOTE | 2016-08-08 17:13 | Discharge Summary ---
Date of Encounter: 08/08/16 Time of Encounter: 17:06 - Discharge Diagnosis (1) Acute bronchitis, viral Priority: Primary Status: Acute (2) Benign hypertension with ESRD (end-stage renal disease) Priority: Secondary Status: Acute (3) Hyperkalemia Priority: Primary Status: Acute (4) Pulmonary vascular congestion Priority: Primary Status: Acute (5) Chronic CHF Priority: Secondary Status: Chronic Qualifiers: Congestive heart failure type: diastolic Qualified Code(s): I50.32 - Chronic diastolic (congestive) heart failure (6) ESRD (end stage renal disease) on dialysis Priority: Secondary Status: Chronic - Discharge Medications Prescriptions: Amlodipine [Norvasc] 10 mg PO BID #30 tablet Home Medications: Oxycodone HCl/Acetaminophen [Percocet 7.5-325 mg Tablet] 1 tab PO Q6H PRN [History] TraMADol [Ultram] 50 mg PO QID PRN 12/30/15 [History] Carvedilol [Coreg] 25 mg PO BID #60 tablet 01/01/16 [Rx] Gabapentin [Neurontin] 800 mg PO QID PRN 03/21/16 [History] Aspirin 81 mg PO DAILY 08/04/16 [History] B Complex W-C No.20/Folic Acid [Nephrocaps Softgel] 1 mg PO DAILY 08/04/16 [ History] Amlodipine [Norvasc] 5 mg PO BID #60 tablet 08/08/16 [Rx] Calcium Acetate [Phos-LO] 2,668 mg PO TIDWM 08/08/16 [History] Cinacalcet HCl [Sensipar] 60 mg PO DAILY 08/08/16 [History] Isosorbide DInitrate [Isordil] 20 mg PO TIDAC 08/08/16 [History] Losartan [Cozaar] 12.5 mg PO DAILY 08/08/16 [History] Minoxidil 5 mg PO BID 08/08/16 [History] Mirtazapine 45 mg PO HS 08/08/16 [History] Omeprazole [PriLOSEC] 40 mg PO DAILY 08/08/16 [History] Allergies/Adverse Reactions: Allergies No Known Allergies Allergy (Verified 08/04/16 09:46) Date of admission: 08/04/16 08:11 Primary care physician: Sanjuana Miner MD Consults: 08/04/16 08:30 Consult to Dialysis [CONS] ONCE 08/06/16 13:30 Consult to Dialysis [CONS] ONCE 08/08/16 09:00 Consult to Dialysis [CONS] ONCE 08/08/16 14:29 Consult to Digital Intern [CONS] Routine Reason for SW Consult: practice - Patient Status Disposition: Home, Self-Care Condition: Good Overall status at discharge: patient is back to baseline - Discharge Instructions Instructions: Heart Failure (DC), Hemodialysis (DC), Hemodialysis (GEN), Dialysis Diet (DC), Dialysis Diet (GEN), Arteriovenous Fistula Creation for Hemodialysis (DC), Chronic Hypertension (DC), Anemia (GEN) Follow Up With: Sanjuana Miner MD [Primary Care Provider] - - Diet and Activity Activity: increase activity as tolerated Diet: advance to your usual diet Hospital course: Mr. Steele is a 41 year old male with hx of ESRD, presented with chest congestion thought to be pneumonia but seemed to be mild bronchitis. Pt was however found to be fluid overloaded and treated with diuretics and continued Hemodialysis with improvement. He had elevated potassium levels which was resistant to correction but improved with combination of oral kayexalate and dialysis. Pt has been cleared from renal standpoint and repeat potassium levels are improved. Pt is discharged to home in stable condition. He did not show any clinical signs of chest congestion at time of DC. Pt to followup with PCP outpatient and with scheduled HD. - Time Spent with Patient Total time spent providing and/or coordinating discharge services: - Constitutional Vitals: Temp Pulse Resp BP Pulse Ox 98.6 F 97 16 115/75 94 L 08/08/16 15:44 08/08/16 15:44 08/08/16 15:44 08/08/16 15:44 08/08/16 15:44 General appearance: Present: A&O X 3, answers questions appropriately - Head Head exam: Present: atraumatic, normocephalic - Eye Eye exam: Present: PERRL, conjuntiva pink, sclera anicteric Pupils: Present: PERRL - Neck Neck exam general surgery: Present: supple, trachea midline. Absent: lymphadenopathy - Respiratory Respiratory exam: Present: CTAB. Absent: accessory muscle use, rales, rhonchi, wheezes - Cardiovascular Cardiovascular exam: Present: RRR, +S1, +S2. Absent: diastolic murmur, gallop, rubs, systolic murmur - GI/Abdominal GI/Abdominal exam: Present: normal bowel sounds, soft, no peritoneal signs. Absent: distended, tenderness - Extremities Exam Extremities exam: Present: warm, radial pulses palpable and symetrical. Absent : calf tenderness, cyanotic, pedal edema - Neurological Exam Neurological exam: Present: CN II-XII intact, oriented X3, no focal deficits. Absent: pronater drift, facial droop, speech deficit - Skin Skin exam: Present: dry, intact
== END 2016-08-08 18:08 | disposition home or self-care (01) | DRG 144 ==
LOC: 2NENU → SUATTDRO 13:49
PROVIDERS: ADMIT Internal Medicine; ATTEND Family Medicine

== ENCOUNTER 2017-08-10 16:27 | Observation (INO) ==
--- NOTE | 2017-08-10 17:05 | Emergency Department Note ---
Disposition Clinical Impression: Elevated INR CKD (chronic kidney disease) Qualifiers: Chronic kidney disease stage: on chronic dialysis Qualified Code(s): N18.6 - End stage renal disease Disposition: Admitted As Inpatient Condition: Good Referrals: Sanjuana Miner MD [Primary Care Provider] - Forms: ED Satisfaction Letter Time of Disposition: 17:59 General Adult HPI - General Chief complaint: ED Recheck/Abnormal Lab/Rx Stated complaint: abn lab Time Seen by Provider: 08/10/17 16:32 Source: patient Limitations: no limitations Nursing Notes Reviewed: Yes Vital Signs Reviewed: Yes - History of Present Illness HPI Narrative: Patient is a 42-year-old male that presents to the emergency department for elevated INR. He states that he was seen at [facility] last night and it did not do anything. Patient states that he has chronic kidney disease and dialyzes Thursday but was unable to dialyze today due to having elevated INR. She denies any symptoms or bleeding. Patient states that he is currently on Coumadin for 2 mechanical valves. He states that his INRs never been this high in the past. He states that he is a patient of Dr. Howard. Pain Scale: 4 - Related Data Home Medications Medication Instructions Recorded Confirmed Oxycodone HCl/Acetaminophen 1 tab PO Q6H PRN 12/30/15 08/04/16 [Percocet 7.5-325 mg Tablet] traMADol [Ultram] 50 mg PO QID PRN 12/30/15 08/04/16 Gabapentin [Neurontin] 800 mg PO QID PRN 03/21/16 08/04/16 Aspirin 81 mg PO DAILY 08/04/16 08/04/16 B Complex W-C No.20/Folic Acid 1 mg PO DAILY 08/04/16 08/04/16 [Nephrocaps Softgel] Calcium Acetate [Phos-LO] 2,668 mg PO TIDWM 08/08/16 08/08/16 Cinacalcet HCl [Sensipar] 60 mg PO DAILY 08/08/16 08/08/16 Isosorbide DInitrate [Isordil] 20 mg PO TIDAC 08/08/16 08/08/16 Losartan [Cozaar] 12.5 mg PO DAILY 08/08/16 08/08/16 Minoxidil 5 mg PO BID 08/08/16 08/08/16 Mirtazapine 45 mg PO HS 08/08/16 08/08/16 Omeprazole [PriLOSEC] 40 mg PO DAILY 08/08/16 08/08/16 Previous Rx's Medication Instructions Recorded Carvedilol [Coreg] 25 mg PO BID #60 tablet 01/01/16 amLODIPine [Norvasc] 5 mg PO BID #60 tablet 08/08/16 Allergies Allergy/AdvReac Type Severity Reaction Status Date / Time No Known Allergies Allergy Verified 08/04/16 09:46 All systems ED: reviewed and negative except as stated. Hematological/Lymphatic: Reports: other (elevated inr) Past Medical History - Past Medical History Medical history: Reports: CHF, dialysis, hyperlipidemia, hypertension, renal disease, valvular heart disease Surgical history: Reports: appendectomy, cholecystectomy, other (Left forearm AV fistula) Psychiatric history: Reports: no psych history - Social History Smoking Status: Never smoker Smokeless Tobacco Status: No Alcohol use: Reports: none Drug use: Reports: none Physical Exam - General Limitations: no limitations General appearance: alert, in no apparent distress - Head Head exam: atraumatic, normocephalic - Eye Eye exam: Present: normal appearance, EOMI - Neck Neck exam: Present: normal inspection, full ROM, trachea midline - Respiratory Respiratory exam: Present: normal lung sounds bilaterally. Absent: respiratory distress, wheezes - Cardiovascular Cardiovascular exam: Present: normal rhythm, tachycardia, normal heart sounds, + S1, +S2 - Abdominal Exam Abdominal exam: Present: soft, Non-Tender, normal bowel sounds - Neurological Exam Neurological exam: Present: alert, oriented X3 - Psychiatric Psychiatric exam: Present: normal affect, normal mood - Skin Skin exam: Present: warm, dry, other (had a small cut on the back of right arm ) Course Vital Signs Temperature 97.4 F L 08/10/17 16:28 Pulse Rate 107 08/10/17 16:28 Respiratory Rate 18 08/10/17 16:28 Blood Pressure 151/84 08/10/17 16:28 O2 Sat by Pulse Oximetry 95 08/10/17 16:28 Temperature 97.4 F L 08/10/17 16:28 Pulse Rate 72 08/10/17 17:16 Respiratory Rate 18 08/10/17 17:16 Blood Pressure 145/95 08/10/17 17:16 O2 Sat by Pulse Oximetry 98 08/10/17 17:16 Oxygen Delivery Oxygen Delivery Room Air Medical Decision Making - MDM Narrative Medical decision making narrative: Due to the patient an elevated INR we will order a CBC, BMP, PT and PTT as well as a chest x-ray. The patient has significantly elevated PT and PTT. His INR was 8.2. Patient has elevated creatinine consistent with his chronic kidney disease. I called and spoke with Dr. Kumar. He has recommended the patient be admitted to the hospitalist with a nephrology consult so the patient can receive dialysis tomorrow. Per radiology the chest x-ray showed pulmonary edema with bilateral pleural effusions. Patient will need to be admitted to the hospital for further evaluation and management. The hospitalist had requested I talk to hematology and they have recommended giving 2.5 mg of vitamin K and holding the patient's Coumadin. I have called and spoke to the hospitalist and they have accepted the patient to the service. The patient will be admitted to the hospital at this time for further evaluation and management. - Lab Data Lab results reviewed: Yes I reviewed the patient's lab results. Result diagrams: 08/10/17 17:09 08/10/17 17:06 Lab Results 08/10/17 08/10/17 08/10/17 Range/Units 17:06 17:06 17:09 WBC 7.4 (4.3-11.1) K/mcL RBC 3.15 L (4.19-5.50) M/mcL Hgb 9.2 L (12.9-16.9) g/dL Hct 28.8 L (37.5-50.1) % MCV 91.4 (83.0-100.0) fL MCH 29.2 (28.0-33.3) pg MCHC 31.9 (31.6-35.5) g/dL RDW 16.6 H (11.5-14.5) % Plt Count 204 (140-400) K/mcL MPV 10.7 (9.4-12.4) fL Immature Gran % 0.4 (0-4) % Seg Neutrophils % 79.3 % Lymphocytes % 5.0 % Monocytes % 8.4 % Eosinophils % 6.0 % Basophils % 0.9 % Neutrophils # 5.8 (1.6-8.9) K/mcL Lymphocytes # 0.4 L (0.6-4.6) K/mcL Monocytes # 0.6 (0.0-1.3) K/mcL Eosinophils # 0.4 (0.0-0.6) K/mcL Basophils # 0.1 (0.0-0.2) K/mcL PT 91.9 H* (9.4-12.1) Seconds INR 8.2 H* APTT 64.2 H (26.0-36.0) Seconds Sodium 138 (136-145) mEq/L Potassium 4.0 (3.5-5.1) mEq/L Chloride 94 L (98-107) mEq/L Carbon Dioxide 31 H (23-29) mEq/L BUN 48 H (6-20) mg/dL Creatinine 11.92 H (0.70-1.30) mg/dL Est GFR ( Amer) 6 L (> 60) Est GFR (Non-Af Amer) 5 L (> 60) BUN/Creatinine Ratio 4 L (6-26) Glucose 124 H (70-105) mg/dL Calculated Osmolality 300 (280-300) Calcium 9.1 (8.6-10.3) mg/dL - Radiology Data Radiology results reviewed: Yes I reviewed the patient's radiology results. Chest X-Ray 08/10/17 16:51 IMPRESSION: 1. Cardiomegaly with increased pulmonary edema and larger bilateral pleural effusions, left side greater than right. D/ / 08/10/2017 17:29:02 Harsh Torres MD / May Terrell Interpreting Provider: Harsh Torres MD
[2017-08-10 17:14] LABS: Basophils # 0.1 K/mcL (0.0-0.2); Basophils % 0.9 %; Eosinophils # 0.4 K/mcL (0.0-0.6); Hematocrit 28.8 % (37.5-50.1); Hemoglobin 9.2 g/dL (12.9-16.9); Immature Granulocytes % 0.4 % (0-4); Lymphocytes # 0.4 K/mcL (0.6-4.6); Mean Corpuscular HGB Conc 31.9 g/dL (31.6-35.5); Mean Corpuscular Hemoglobin 29.2 pg (28.0-33.3); Mean Corpuscular Volume 91.4 fL (83.0-100.0); Mean Platelet Volume 10.7 fL (9.4-12.4); Monocytes # 0.6 K/mcL (0.0-1.3); Monocytes % 8.4 %; Neutrophils # 5.8 K/mcL (1.6-8.9); Platelet Count 204 K/mcL (140-400); Red Blood Count 3.15 M/mcL (4.19-5.50); Red Cell Distribution Width 16.6 % (11.5-14.5); Segmented Neutrophils % 79.3 %
[2017-08-10 17:24] LABS: Activated Partial Thrombo Time 64.2 Seconds (26.0-36.0)
[2017-08-10 17:26] LABS: Calcium 9.1 mg/dL (8.6-10.3); INR 8.2; Prothrombin Time 91.9 Seconds (9.4-12.1)
--- NOTE | 2017-08-10 17:40 | Emergency Department Note ---
START Narrative - START START: I examined this patient and my medical decision-making was reviewed with the Resident Physician. I agree with the documented findings, disposition and treatment plan as described except to the extent set forth below. 42-year-old male presents to the ER for abdominal INR. Patient was unable to get dialysis today due to his INR being too high. Patient takes this medication for his heart valve replacements. He came into the ER due to his elevated INR and lack of dialysis today. He feels slightly short of breath. His last dialysis was on Thursday. Once we have all his labs back we will consult with his bacteriologist industrial. His INR here was 8. We did recheck and that was in fact 8. We can give him some oral vitamin K and consult with nephrology for time management of his dialysis.
[2017-08-10] MEDS ORDERED: *HR* Phytonadione 5 MG TABLET PO ONE (17:57)
[2017-08-10] MEDS ORDERED: *HR* OxyCODONE/APAP 7.5/325 TABLET PO PRN (19:57)
[2017-08-10] MEDS ORDERED: traMADol 50 MG TABLET PO PRN (19:57)
--- NOTE | 2017-08-10 20:11 | Internal Med History&Physical ---
<Iker Briggs - Last Filed: 08/10/17 20:08> Date of Encounter: 08/10/17 Time of Encounter: 20:08 Assessment and Plan (1) ESRD (end stage renal disease) on dialysis Current visit: Yes Status: Acute ESRD with M-W-F hemodialysis. He sees Dr. Kumar. Unable to get hemodialysis today d/t elevated INR of 8.2 He is feeling weak and fatigued. CXR reveals pulmonary vascular congestion. No peripheral edema. Resting comfortably on room air, he remains hemodynamically stable, no acute bleeding noted LABS; BUN 48, CR 11.92, GFR5, K 4.0 -Dr. Kumar consulted and plans for hemodialysis tomorrow. Recommended 2.5 vit K; given in ED -hold coumadin for now, restart once INR is withing therapeutic range -Avoid nephrotoxins -CBC, BMP in the a.m. (2) Supratherapeutic INR Current visit: Yes Status: Acute see plan above (3) Pulmonary vascular congestion Current visit: Yes Status: Acute CXR shows pulmonary edema in the setting of ESRD. He is currently stable and in no respiratory distress. Spo2 98% on room air. Was not able to receive dialysis treatment today d/t supratherapeutic PT/INR -Plan is to receive dialysis tomorrow, I expect that the congestion will improve with fluid removal (4) Benign hypertension with ESRD (end-stage renal disease) Current visit: Yes Status: Acute Stable, resume Norvasc and Coreg (5) Anemia in chronic kidney disease (CKD) Current visit: Yes Status: Chronic Anemai of chronic kidney disease. H&H 9.2/28.8 Active bleeding noted however patient does have supratherapeutic PT/INR Continue monitor for bleeding Qualifiers: Chronic kidney disease stage: on chronic dialysis Qualified Code(s): N18.6 - End stage renal disease; D63.1 - Anemia in chronic kidney disease; D63.1 - Anemia in chronic kidney disease; Z99.2 - Dependence on renal dialysis; Z99.2 - Dependence on renal dialysis; Z99.2 - Dependence on renal dialysis; Z99.2 - Dependence on renal dialysis (6) DVT prophylaxis Current visit: Yes Status: Acute Supratherapeutic PT/INR Internal Medicine - H&P: HPI Chief complaint: elevated PT/INR Admitted From: Home Plans for Post Hospital Care: Home History of present illness: Mr. Steele is a 42 year old male with a PMH of ESRD, M-W-F hemodialysis, CHF, HLD, HTN, and valvular heart disease with 2 mechanical valves (he is on coumadin ). He presents to [facility] today for supratherapeutic INR. He denies any changes to medications or taking extra doses. He admits to being diagnosed with the flu recently. He admits to recent fevers, chills, malaise, and muscle aches. Currently he just feels fatigued. He was unable to receive hemodialysis today d /t elevated INR. He reports that he see Dr. Kumar. He will need hemodialysis tomorrow. Past Med Surg Social Fam HX - Past Medical History Medical history: CHF, dialysis, hyperlipidemia, hypertension, renal disease, valvular heart disease Psychiatric history: no psych history - Past Surgical History Surgical History: appendectomy, cholecystectomy, other (Left forearm AV fistula) - Social History Smoking Status: Never smoker Smokeless Tobacco Status: No Alcohol use: none Drug use: none - Family History Father Hx Family Cardiac Disorders: Yes (Coronary artery disease) Internal Medicine - H&P: Meds Oxycodone HCl/Acetaminophen [Percocet 7.5-325 mg Tablet] 1 tab PO Q6H PRN [History] traMADol [Ultram] 50 mg PO TID PRN 12/30/15 [History] Carvedilol [Coreg] 25 mg PO BID #60 tablet 01/01/16 [Rx] Gabapentin [Neurontin] 800 mg PO TID 03/21/16 [History] Aspirin 81 mg PO DAILY 08/04/16 [History] B Complex W-C No.20/Folic Acid [Nephrocaps Softgel] 1 mg PO DAILY 08/04/16 [ History] Calcium Acetate [Phos-LO] 3,335 mg PO TIDWM 08/08/16 [History] Isosorbide DInitrate [Isordil] 20 mg PO TID 08/08/16 [History] Omeprazole [PriLOSEC] 40 mg PO DAILY 08/08/16 [History] Coumadin 08/10/17 [History] Sirolimus [Rapamune] 1 mg PO DAILY 01/15/18 [History] amLODIPine [Norvasc] 5 mg PO HS 08/10/17 [History] 3 Allergy/AdvReac Type Severity Reaction Status Date / Time No Known Allergies Allergy Verified 08/04/16 09:46 All Systems PM: A 10-system review of systems was performed and is negative for pertinent findings except as documented above in the HPI. - Constitutional Constitutional: no chills, no fever(s), no night sweats - EENT Eyes: no change in vision, no discharge, no pain, no photophobia Ears: no ear discharge, no ear pain, no tinnitus Nose, mouth and throat: no dysphagia, no nasal discharge, no neck pain, no sore throat - Cardiovascular Cardiovascular ROS IM: dyspnea on exertion, no chest pain, no diaphoresis, no dyspnea, no lightheadedness, no palpitations, no syncope - Respiratory Respiratory: dyspnea on exertion, no cough, no dyspnea, no wheezing, no excessive phlegm production - Gastrointestinal Gastrointestinal: no abdominal pain, no diarrhea, no hematemesis, no hematochezia, no melena, no nausea, no vomiting - Musculoskeletal Musculoskeletal ROS IM: no numbness, no tingling - Integumentary Integumentary IM: no rash, no unusual bruising - Neurological Neurological ROS: no confusion, no convulsions, no focal weakness, no numbness, no tingling, no tremor(s) - Hematologic/Lymphatic Hematologic/Lymphatic: no easy bruising - Constitutional Vitals: Temp Pulse Resp BP Pulse Ox 97.4 F L 74 16 145/100 93 08/10/17 16:28 08/10/17 18:18 08/10/17 18:18 08/10/17 18:18 08/10/17 18:18 General appearance: Present: cooperative, A&O X 3, no acute distress, answers questions appropriately - Head Head exam: Present: atraumatic, normocephalic - Eye Eye exam: Present: PERRL, conjuntiva pink, sclera anicteric Pupils: Present: PERRL - Neck Neck exam general surgery: Present: supple, trachea midline. Absent: lymphadenopathy - Respiratory Respiratory exam: Present: CTAB, rales (fine posterior bases). Absent: accessory muscle use, rhonchi, wheezes - Cardiovascular Cardiovascular exam: Present: RRR, +S1, +S2. Absent: diastolic murmur, gallop, rubs, systolic murmur - GI/Abdominal GI/Abdominal exam: Present: normal bowel sounds, soft, no peritoneal signs. Absent: distended, tenderness - Extremities Exam Extremities exam: Present: warm, radial pulses palpable and symmetrical. Absent : calf tenderness, cyanotic, pedal edema - Neurological Exam Neurological exam: Present: alert, oriented X3, no focal deficits. Absent: pronater drift, facial droop, speech deficit - Skin Skin exam: Present: dry Additional comments: multiple small ulcerations in various stages of healing on BL upper arms Internal Med - H&P Results - Labs CBC & Chem 7: 08/10/17 17:09 08/10/17 17:06 - Impressions Impressions Chest X-Ray 08/10/17 16:51 IMPRESSION: 1. Cardiomegaly with increased pulmonary edema and larger bilateral pleural effusions, left side greater than right. D/ / 08/10/2017 17:29:02 Harsh Torres MD / May Terrell Interpreting Provider: Harsh Torres MD <Tiesha Patrick - Last Filed: 08/11/17 04:04> Date of Encounter: 08/10/17 Internal Medicine - H&P: HPI History of present illness: Mr. Steele is a 42 year old male All Systems PM: A 10-system review of systems was performed and is negative for pertinent findings except as documented above in the HPI. - Constitutional Vitals: Temp Pulse Resp BP Pulse Ox 97.8 F 77 17 124/71 94 08/10/17 23:51 08/10/17 23:51 08/10/17 23:51 08/10/17 23:51 08/10/17 23:51 Internal Med - H&P Results - Labs CBC & Chem 7: 08/10/17 17:09 08/10/17 17:06 - Attending Attestation Patient is a 42y/o male admitted for Supratherpeutic INR. Pt independently seen and examined at bedside. Resting comfortably and denied any discomfort. Nephrology consulted by the ER physician, scheduled for HD in am Continue to hold coumadin until INR within therapeutic range (2-3) received Vitamin K 2.5mg PO Case discussed with YOSSI Briggs, I agree with his documented findings, assessment, and plan except as listed above.
[2017-08-10] MEDS: Gabapentin 300 MG CAPSULE PO SCH (20:51)
[2017-08-10] MEDS: amLODIPine 5 MG TABLET PO SCH (20:51)
[2017-08-10] MEDS ORDERED: Naloxone 0.4 MG/ML INJ IVP PRN (21:17)
[2017-08-10] MEDS: *HR* OxyCODONE/APAP 7.5/325 TABLET PO PRN (21:55)
[2017-08-11 04:42] LABS: Basophils # 0.1 K/mcL (0.0-0.2); Basophils % 0.9 %; Eosinophils # 0.4 K/mcL (0.0-0.6); Eosinophils % 5.4 %; Hematocrit 25.5 % (37.5-50.1); Hemoglobin 8.2 g/dL (12.9-16.9); Immature Granulocytes % 0.2 % (0-4); Lymphocytes # 0.6 K/mcL (0.6-4.6); Mean Corpuscular HGB Conc 32.2 g/dL (31.6-35.5); Mean Corpuscular Hemoglobin 29.3 pg (28.0-33.3); Mean Corpuscular Volume 91.1 fL (83.0-100.0); Mean Platelet Volume 10.7 fL (9.4-12.4); Monocytes # 0.8 K/mcL (0.0-1.3); Monocytes % 9.3 %; Neutrophils # 6.2 K/mcL (1.6-8.9); Platelet Count 212 K/mcL (140-400); Red Cell Distribution Width 16.5 % (11.5-14.5); Segmented Neutrophils % 77.2 %
[2017-08-11 04:53] LABS: INR 4.2
[2017-08-11 05:00] LABS: Albumin 3.6 g/dL (3.5-5.7); Albumin/Globulin Ratio 1.1 (1.1-2.2); Bilirubin,Total 0.9 mg/dL (0.3-1.0); Calcium 8.8 mg/dL (8.6-10.3); Globulin 3.4 g/dL (2.4-3.5); Potassium 4.8 mEq/L (3.5-5.1)
--- NOTE | 2017-08-11 08:14 | Nephrology Consult Note ---
Date of Encounter: 08/11/17 Time of Encounter: 08:12 Assessment and Plan (1) ESRD (end stage renal disease) on dialysis Current Visit: Yes Status: Acute Patient will undergo dialysis today on a 3K bath. He will not receive any heparin. He will be placed on Aranesp for his anemia. He will have dialysis again tomorrow to get him back on his usual outpatient schedule. (2) Anemia in chronic kidney disease (CKD) Current Visit: Yes Status: Chronic Qualifiers: Chronic kidney disease stage: on chronic dialysis Qualified Code(s): N18.6 - End stage renal disease; D63.1 - Anemia in chronic kidney disease; D63.1 - Anemia in chronic kidney disease; Z99.2 - Dependence on renal dialysis; Z99.2 - Dependence on renal dialysis; Z99.2 - Dependence on renal dialysis; Z99.2 - Dependence on renal dialysis (3) Elevated INR Current Visit: Yes Status: Acute History of Present Illness - History of Present Illness This is a 42-year-old male with end-stage renal disease. He receives hemodialysis every Thursday injection. He has a failed renal transplant. Patient's last dialysis was this past Thursday. Patient was told by his primary care provider yesterday not to come to dialysis because of an elevated INR of 8.2. He is on Coumadin following to heart valve replacements. Patient said he had the flu last week. He was taking some Tamiflu. He denies any other changes in medications. Currently says he is feeling well. He denies any shortness of breath. Patient denies any abnormal bleeding. He is not noticed any melena or hematochezia. Hemoglobin is 8.2 today. INR has improved to 4.2 following administration of vitamin K and holding his Coumadin. Patient will undergo dialysis today and again tomorrow to get him back on schedule. Past Med Surg Social Fam HX - Past Medical History Medical history: CHF, dialysis, hyperlipidemia, hypertension, renal disease, valvular heart disease Psychiatric history: no psych history - Past Surgical History Surgical History: appendectomy, cholecystectomy, other (Left forearm AV fistula) - Social History Smoking Status: Never smoker Smokeless Tobacco Status: No Alcohol use: none Drug use: none - Family History Father Living Status: Still Living Hx Family Cardiac Disorders: Yes (Coronary artery disease) Medications and Allergies Oxycodone HCl/Acetaminophen [Percocet 7.5-325 mg Tablet] 1 tab PO Q6H PRN [History] traMADol [Ultram] 50 mg PO TID PRN 12/30/15 [History] Carvedilol [Coreg] 25 mg PO BID #60 tablet 01/01/16 [Rx] Gabapentin [Neurontin] 800 mg PO TID 03/21/16 [History] Aspirin 81 mg PO DAILY 08/04/16 [History] B Complex W-C No.20/Folic Acid [Nephrocaps Softgel] 1 mg PO DAILY 08/04/16 [ History] Calcium Acetate [Phos-LO] 3,335 mg PO TIDWM 08/08/16 [History] Isosorbide DInitrate [Isordil] 20 mg PO TID 08/08/16 [History] Omeprazole [PriLOSEC] 40 mg PO DAILY 08/08/16 [History] Coumadin 08/10/17 [History] Sirolimus [Rapamune] 1 mg PO DAILY 08/10/17 [History] amLODIPine [Norvasc] 5 mg PO HS 08/10/17 [History] 3 Allergy/AdvReac Type Severity Reaction Status Date / Time No Known Allergies Allergy Verified 08/04/16 09:46 Review of Systems Constitutional: as per HPI Eyes: bilateral: blurred vision (patient denies), diplopia (patient denies) Nose, mouth and throat: no dizziness, no headache(s) Cardiovascular: dyspnea on exertion, no chest pain, no palpitations Respiratory: dyspnea on exertion, no cough, no dyspnea Gastrointestinal: no abdominal pain, no change in bowel habits Musculoskeletal: no muscle weakness, no numbness Integumentary: no hirsutism, no striae Neurological: as per HPI Psychiatric: no depression, no difficulty concentrating Endocrine: as per HPI Hematologic/Lymphatic: no easy bruising, no lymphadenopathy Exam - Vital Signs Vital signs: Initial Vital Signs Temp Pulse Resp BP Pulse Ox 97.4 F L 107 18 151/84 95 08/10/17 16:28 08/10/17 16:28 08/10/17 16:28 08/10/17 16:28 08/10/17 16:28 Vital Signs - Last 8 Hours Temp Pulse Resp BP Pulse Ox 08/11/17 06:55 97.5 F L 72 17 131/82 94 08/11/17 04:02 98 F 76 17 91 Intake and Output 08/10/17 08/11/17 08/11/17 23:59 07:59 15:59 Intake Total 240 / 240 Balance 240 / 240 Intake: Oral 240 / 240 Other: Meal turkey sandwich, meatloaf meal, goldfish and igor grahams. # Voids 1 - General Appearance Exam: Patient is alert and oriented. He is in no acute distress. Lungs essentially clear to auscultation. Heart regular rate and rhythm with prosthetic valve click. Abdomen shows normal bowel sounds braze masses, megaly or tenderness. [place] shellfish only trace lower extremity edema. There is a functioning AV fistula in the left upper extremity. Results - Lab Results 08/11/17 04:24 08/11/17 04:24 Most recent lab results Calcium 8.8 mg/dL (8.6-10.3) 08/11/17 04:24 Consult Discharge Plan - Plan Referrals: Sanjuana Miner MD [Primary Care Provider] -
[2017-08-11] MEDS ORDERED: Darbepoetin 100 MCG/0.5 ML SYRINGE SQ SCH (08:15)
[2017-08-11] MEDS ORDERED: 0.9 % Sodium Chloride 250 ML IVC PRN (08:15)
[2017-08-11] MEDS: Renal Vitamin 1 MG CAPSULE PO SCH (09:15)
[2017-08-11] MEDS: Calcium Acetate 667 MG CAPSULE PO SCH ×3 (09:16→17:08)
[2017-08-11] MEDS: Aspirin 81 MG TAB.CHEW PO SCH (09:16)
[2017-08-11] MEDS: *HR* OxyCODONE/APAP 7.5/325 TABLET PO PRN ×2 (09:19→20:36)
--- NOTE | 2017-08-11 09:24 | Discharge Summary ---
Date of Encounter: 08/11/17 Time of Encounter: 08:45 - Discharge Diagnosis (1) Supratherapeutic INR Priority: Primary Status: Acute (2) Valvular heart disease Priority: Secondary Status: Chronic (3) CHF (congestive heart failure) Priority: Secondary Status: Chronic Qualifiers: Congestive heart failure type: unspecified Congestive heart failure chronicity: chronic Qualified Code(s): I50.9 - Heart failure, unspecified (4) Hyperlipidemia Priority: Secondary Status: Chronic Qualifiers: Hyperlipidemia type: mixed hyperlipidemia Qualified Code(s): E78.2 - Mixed hyperlipidemia (5) HTN (hypertension) Priority: Secondary Status: Chronic Qualifiers: Hypertension type: essential hypertension Qualified Code(s): I10 - Essential (primary) hypertension (6) Anemia in chronic kidney disease (CKD) Priority: Secondary Status: Chronic Qualifiers: Chronic kidney disease stage: on chronic dialysis Qualified Code(s): N18.6 - End stage renal disease; D63.1 - Anemia in chronic kidney disease; D63.1 - Anemia in chronic kidney disease; Z99.2 - Dependence on renal dialysis; Z99.2 - Dependence on renal dialysis; Z99.2 - Dependence on renal dialysis; Z99.2 - Dependence on renal dialysis (7) ESRD (end stage renal disease) on dialysis Priority: Secondary Status: Chronic - Discharge Medications Home Medications: Oxycodone HCl/Acetaminophen [Percocet 7.5-325 mg Tablet] 1 tab PO Q6H PRN [History] traMADol [Ultram] 50 mg PO TID PRN 12/30/15 [History] Carvedilol [Coreg] 25 mg PO BID #60 tablet 01/01/16 [Rx] Gabapentin [Neurontin] 800 mg PO TID 03/21/16 [History] Aspirin 81 mg PO DAILY 08/04/16 [History] B Complex W-C No.20/Folic Acid [Nephrocaps Softgel] 1 mg PO DAILY 08/04/16 [ History] Calcium Acetate [Phos-LO] 3,335 mg PO TIDWM 08/08/16 [History] Isosorbide DInitrate [Isordil] 20 mg PO TID 08/08/16 [History] Omeprazole [PriLOSEC] 40 mg PO DAILY 08/08/16 [History] Sirolimus [Rapamune] 1 mg PO DAILY 08/10/17 [History] amLODIPine [Norvasc] 5 mg PO HS 08/10/17 [History] Allergies/Adverse Reactions: 3 Allergy/AdvReac Type Severity Reaction Status Date / Time No Known Allergies Allergy Verified 08/04/16 09:46 Date of admission: 08/10/17 21:17 Primary care physician: Sanjuana Miner MD Consults: 08/11/17 08:15 Consult to Dialysis [CONS] ONCE 08/12/17 08:15 Consult to Dialysis [CONS] ONCE Discharging clinician: Janene Parmar Anticipated date of discharge: 08/11/17 - Patient Status Disposition: Home, Self-Care Condition: Good Functional capacity at discharge: independent ambulation Overall status at discharge: patient is progressing back to baseline - Discharge Instructions Follow Up With: Sanjuana Miner MD [Primary Care Provider] - Additional Instructions: F/up with Coumadin clinic on 08/12/17 F/up with PCP in 1-2 weeks F/up for HD 3 times/week- MWF - Diet and Activity Activity: resume usual activities as tolerated Diet: low fat, low cholesterol, low salt diet, other (renal diet) Hospital course: Mr. Steele is a 42 year old male - Time Spent with Patient Total time spent providing and/or coordinating discharge services: Greater than 30 minutes (40 min) - Constitutional Vitals: Temp Pulse Resp BP Pulse Ox 97.5 F L 72 17 131/82 94 08/11/17 06:55 08/11/17 06:55 08/11/17 06:55 08/11/17 06:55 08/11/17 06:55 General appearance: Present: cooperative, A&O X 3, answers questions appropriately - Cardiovascular Cardiovascular exam: Present: RRR, +S1 (mechanical heart sounds), +S2. Absent: diastolic murmur, gallop, rubs, systolic murmur - VTE Reasons for not Prescribing Prophylaxis: Medical contraindication
--- NOTE | 2017-08-11 09:37 | Internal Med Progress Note ---
Date of Encounter: 08/11/17 Time of Encounter: 09:36 - Assessment and plan (1) Supratherapeutic INR Current Visit: Yes Status: Acute Assessment and plan: Patient was noted to have INR of 6.4 on routine labs. Could not undergo hemodialysis yesterday, was referred to emergency room and received 2.5 mg of vitamin K. INR noted to be 4.2 today. Continue to monitor closely, expect INR to decrease significantly tomorrow. We will start low-dose Coumadin as patient has history of 2 mechanical heart valves and goal INR is 2.5-3.5. (2) Valvular heart disease Current Visit: Yes Status: Chronic (3) CHF (congestive heart failure) Current Visit: Yes Status: Chronic Assessment and plan: Not in acute exacerbation. Continue beta faustino and nitrate. Qualifiers: Congestive heart failure type: unspecified Congestive heart failure chronicity: chronic Qualified Code(s): I50.9 - Heart failure, unspecified (4) Hyperlipidemia Current Visit: Yes Status: Chronic Assessment and plan: Continue statin. Qualifiers: Hyperlipidemia type: mixed hyperlipidemia Qualified Code(s): E78.2 - Mixed hyperlipidemia (5) HTN (hypertension) Current Visit: Yes Status: Chronic Qualifiers: Hypertension type: essential hypertension Qualified Code(s): I10 - Essential (primary) hypertension (6) Anemia in chronic kidney disease (CKD) Current Visit: Yes Status: Chronic Qualifiers: Chronic kidney disease stage: on chronic dialysis Qualified Code(s): N18.6 - End stage renal disease; D63.1 - Anemia in chronic kidney disease; D63.1 - Anemia in chronic kidney disease; Z99.2 - Dependence on renal dialysis; Z99.2 - Dependence on renal dialysis; Z99.2 - Dependence on renal dialysis; Z99.2 - Dependence on renal dialysis (7) ESRD (end stage renal disease) on dialysis Current Visit: Yes Status: Chronic Assessment and plan: Nephrology consulted for hemodialysis needs, patient underwent hemodialysis today. Continue phosphate binders and multivitamins. - Subjective Interval history: No c/o chest pain, dyspnea; does have some leg swelling, which is at his baseline; no cough, fever/chills; - Constitutional Vitals: Temp Pulse Resp BP Pulse Ox 97.5 F L 72 17 131/82 94 08/11/17 06:55 08/11/17 06:55 08/11/17 06:55 08/11/17 06:55 08/11/17 06:55 General appearance: Present: cooperative, A&O X 3, no acute distress, answers questions appropriately - Respiratory Respiratory exam: Present: CTAB. Absent: accessory muscle use, rales, rhonchi, wheezes - Cardiovascular Cardiovascular exam: Present: RRR (mechanical heart sounds), +S1, +S2. Absent: diastolic murmur, gallop, rubs, systolic murmur - GI/Abdominal GI/Abdominal exam: Present: normal bowel sounds, soft, no peritoneal signs. Absent: distended, tenderness - Extremities Exam Extremities exam: Present: full ROM, warm, radial pulses palpable and symmetrical. Absent: calf tenderness, cyanotic, pedal edema Internal Medicine: Result - Labs CBC & Chem 7: 08/11/17 04:24 08/11/17 04:24 Labs: Short CBC 08/11/17 Range/Units 04:24 WBC 8.1 (4.3-11.1) K/mcL Hgb 8.2 L (12.9-16.9) g/dL Hct 25.5 L (37.5-50.1) % Plt Count 212 (140-400) K/mcL Neutrophils # 6.2 (1.6-8.9) K/mcL BMP 08/11/17 04:24 Sodium 139 Potassium 4.8 Chloride 96 L Carbon Dioxide 28 BUN 53 H Creatinine 12.80 H Glucose 94 Calcium 8.8 Liver Function 08/11/17 Range/Units 04:24 Total Bilirubin 0.9 (0.3-1.0) mg/dL AST 26 (13-39) Units/L ALT 10 (7-52) Units/L Alkaline Phosphatase 74 (34-104) Units/L Albumin 3.6 (3.5-5.7) g/dL - ABG Interpretation ABG results: PT/INR, D-dimer PT 47.0 Seconds (9.4-12.1) H* 08/11/17 04:24 - VTE Reasons for not Prescribing Prophylaxis: Medical contraindication Consult Discharge Plan - Plan Additional Instructions: F/up with Coumadin clinic on 08/12/17 F/up with PCP in 1-2 weeks F/up for HD 3 times/week- MWF Referrals: Sanjuana Miner MD [Primary Care Provider] - 08/24/17 2:00 pm (Please follow up as schedule...)
[2017-08-11 09:38] LABS: Hepatitis B Surface Antigen Nonreactive (Nonreactive)
[2017-08-11] MEDS ORDERED: 0.9 % Sodium Chloride 2,000 ML ONE (15:13)
[2017-08-11] MEDS ORDERED: *HR* Warfarin 2 MG TABLET PO ONE (18:00)
[2017-08-11] MEDS ORDERED: Warfarin perPT PO PRN (18:00)
[2017-08-11] MEDS: Gabapentin 300 MG CAPSULE PO SCH (20:36)
[2017-08-11] MEDS: amLODIPine 5 MG TABLET PO SCH (20:36)
[2017-08-12 01:36] LABS: Hepatitis B Surface Antibody 0.48 mIU/mL
[2017-08-12 06:35] LABS: INR 1.9; Prothrombin Time 20.6 Seconds (9.4-12.1)
[2017-08-12] MEDS ORDERED: 0.9 % Sodium Chloride 250 ML IVC PRN (08:01)
--- NOTE | 2017-08-12 08:01 | Nephrology Progress Note ---
Date of Encounter: 08/12/17 Time of Encounter: 08:00 - Assessment and Plan (1) ESRD (end stage renal disease) on dialysis Current Visit: Yes Status: Chronic Patient will undergo dialysis today to get back on his usual outpatient schedule. His INR is down to 1.9 and I suspect he will be able to receive some Coumadin today. (2) Anemia in chronic kidney disease (CKD) Current Visit: Yes Status: Chronic Qualifiers: Chronic kidney disease stage: on chronic dialysis Qualified Code(s): N18.6 - End stage renal disease; D63.1 - Anemia in chronic kidney disease; D63.1 - Anemia in chronic kidney disease; Z99.2 - Dependence on renal dialysis; Z99.2 - Dependence on renal dialysis; Z99.2 - Dependence on renal dialysis; Z99.2 - Dependence on renal dialysis (3) Elevated INR Current Visit: Yes Status: Acute Subjective Interval history: Patient reports no complaints. Dialysis yesterday because he had missed dialysis on Thursday. He will undergo dialysis again today to get back on his outpatient schedule. INR is down to 1.9. Objective - Vital Signs Vital signs: Vital Signs Temp Pulse Resp BP Pulse Ox 08/12/17 07:12 98.2 F 82 16 161/85 94 08/12/17 03:48 98.4 F 81 16 135/77 95 08/12/17 00:02 98.6 F 81 16 132/80 94 08/11/17 20:31 98.6 F 83 16 144/86 92 08/11/17 15:47 97.9 F 82 16 163/95 99 08/11/17 13:45 97.1 F L 15 168/92 08/11/17 13:30 154/78 08/11/17 13:15 141/76 08/11/17 13:00 149/90 08/11/17 12:45 153/83 08/11/17 12:30 154/84 08/11/17 12:15 129/75 08/11/17 12:00 145/81 08/11/17 11:45 138/82 08/11/17 11:30 141/78 08/11/17 11:15 139/73 08/11/17 11:00 144/82 08/11/17 10:45 142/83 08/11/17 10:30 97.8 F 15 142/81 Intake and Output 08/11/17 08/12/17 08/12/17 23:59 07:59 15:59 Other: # Voids 1 1 # Urine Diapers 1 # Bowel Movements 1 1 Weight 72.5 kg Patient Weight 08/12/17 23:59 Weight 72.5 kg - General Appearance Exam: Patient is alert and oriented. He is in no acute distress. Lungs benchpress sounds otherwise clear. Heart regular rhythm with a prosthetic valve click. Abdomen is benign. There is no peripheral edema. There is a functioning AV fistula in the left upper extremity. - Lab 08/11/17 04:24 08/11/17 04:24 Most recent lab results Calcium 8.8 mg/dL (8.6-10.3) 08/11/17 04:24 - VTE Reasons for not Prescribing Prophylaxis: Medical contraindication Consult Discharge Plan - Plan Additional Instructions: F/up with Coumadin clinic on 08/12/17 F/up with PCP in 1-2 weeks F/up for HD 3 times/week- MWF Referrals: Sanjuana Miner MD [Primary Care Provider] - 08/24/17 2:00 pm (Please follow up as schedule...)
[2017-08-12] MEDS: Calcium Acetate 667 MG CAPSULE PO SCH ×3 (08:08→18:45)
[2017-08-12] MEDS: Aspirin 81 MG TAB.CHEW PO SCH (08:09)
[2017-08-12] MEDS: Renal Vitamin 1 MG CAPSULE PO SCH (08:09)
[2017-08-12] MEDS ORDERED: *HR* Heparin 5,000 UNIT/ML VIAL IVP PRN (08:15)
[2017-08-12] MEDS: *HR* OxyCODONE/APAP 7.5/325 TABLET PO PRN ×2 (08:16→20:29)
[2017-08-12 08:21] LABS: Calcium 9.8 mg/dL (8.6-10.3); Potassium 4.4 mEq/L (3.5-5.1)
--- NOTE | 2017-08-12 08:23 | Internal Med Progress Note ---
Date of Encounter: 08/12/17 Time of Encounter: 08:20 - Assessment and plan (1) Supratherapeutic INR Current Visit: Yes Status: Acute Assessment and plan: Patient's INR is down to 1.9. Given his history of 2 mechanical valves, I will be starting him on a heparin drip. Will dose Coumadin per pharmacy. Check INR in the morning and if it is therapeutic he may be discharged. No signs of bleeding. INR goal is 2.5-3.5. (2) Hyperlipidemia Current Visit: Yes Status: Chronic Assessment and plan: Continue statin. Qualifiers: Hyperlipidemia type: mixed hyperlipidemia Qualified Code(s): E78.2 - Mixed hyperlipidemia (3) HTN (hypertension) Current Visit: Yes Status: Chronic Assessment and plan: Blood pressure stable. Continue Norvasc, cord. Qualifiers: Hypertension type: essential hypertension Qualified Code(s): I10 - Essential (primary) hypertension (4) Anemia in chronic kidney disease (CKD) Current Visit: Yes Status: Chronic Assessment and plan: A secondary to kidney disease. Patient receives Aranesp. Qualifiers: Chronic kidney disease stage: on chronic dialysis Qualified Code(s): N18.6 - End stage renal disease; D63.1 - Anemia in chronic kidney disease; D63.1 - Anemia in chronic kidney disease; Z99.2 - Dependence on renal dialysis; Z99.2 - Dependence on renal dialysis; Z99.2 - Dependence on renal dialysis; Z99.2 - Dependence on renal dialysis (5) ESRD (end stage renal disease) on dialysis Current Visit: Yes Status: Chronic Assessment and plan: Nephrology consulted for hemodialysis needs, he is to be dialyzed again this morning. He is a Thursday dialysis. (6) Valvular heart disease Current Visit: Yes Status: Chronic Assessment and plan: As above on heparin and Coumadin. (7) Diastolic CHF, chronic Current Visit: Yes Status: Acute Assessment and plan: not in excerbation. c/w coreg/isordil. (8) DVT prophylaxis Current Visit: Yes Status: Acute Assessment and plan: Heparin drip with Coumadin bridging. - Subjective Interval history: No acute events. The patient has no signs of bleeding. His INR is now subtherapeutic. He did receive 2 mg of Coumadin yesterday. He was dialyzed as well. Getting ready for dialysis again this morning. He has been afebrile. - Constitutional Vitals: Temp Pulse Resp BP Pulse Ox 98.2 F 82 16 161/85 94 08/12/17 07:12 08/12/17 07:12 08/12/17 07:12 08/12/17 07:12 08/12/17 07:12 General appearance: Present: cooperative, A&O X 3, no acute distress, answers questions appropriately Exam: GEN: NAD CVS: RRR. S1, S2, No m/r/g RESP: CTAB ABD: Soft, NT, ND, +BS EXT: No edema. 2+ DP. No rashes NEURO: Nonfocal Internal Medicine: Result - Labs CBC & Chem 7: 08/12/17 08:48 08/12/17 07:48 - ABG Interpretation ABG results: PT/INR, D-dimer PT 20.6 Seconds (9.4-12.1) H D 08/12/17 05:38 - VTE Reasons for not Prescribing Prophylaxis: Medical contraindication Consult Discharge Plan - Plan Additional Instructions: F/up with Coumadin clinic on 08/12/17 F/up with PCP in 1-2 weeks F/up for HD 3 times/week- MWF Referrals: Sanjuana Miner MD [Primary Care Provider] - 08/24/17 2:00 pm (Please follow up as schedule...)
[2017-08-12 08:31] LABS: Hematocrit 30.4 % (37.5-50.1); Hemoglobin 9.5 g/dL (12.9-16.9); Mean Corpuscular HGB Conc 31.3 g/dL (31.6-35.5); Mean Corpuscular Hemoglobin 29.1 pg (28.0-33.3); Mean Corpuscular Volume 93.3 fL (83.0-100.0); Mean Platelet Volume 11.4 fL (9.4-12.4); Platelet Count 248 K/mcL (140-400); Red Blood Count 3.26 M/mcL (4.19-5.50); Red Cell Distribution Width 16.4 % (11.5-14.5)
[2017-08-12 08:56] LABS: Hematocrit 29.8 % (37.5-50.1); Hemoglobin 9.4 g/dL (12.9-16.9); Immature Platelets 2.2 % (1.1-6.1); Mean Corpuscular HGB Conc 31.5 g/dL (31.6-35.5); Mean Corpuscular Hemoglobin 29.4 pg (28.0-33.3); Mean Corpuscular Volume 93.1 fL (83.0-100.0); Mean Platelet Volume 11.3 fL (9.4-12.4); Red Blood Count 3.2 M/mcL (4.19-5.50); Red Cell Distribution Width 16.6 % (11.5-14.5)
[2017-08-12 09:01] LABS: INR 1.9; Prothrombin Time 20.4 Seconds (9.4-12.1)
[2017-08-12 09:03] LABS: Activated Partial Thrombo Time 41.1 Seconds (26.0-36.0)
[2017-08-12] MEDS: Heparin 25,000 UNIT/500 ML D5W 25,000 UNIT/500 ML BAG IVC SCH (10:35)
[2017-08-12] MEDS ORDERED: 0.9 % Sodium Chloride 2,000 ML ONE (12:38)
[2017-08-12] MEDS ORDERED: *HR* Warfarin 4 MG TABLET PO ONE (18:00)
[2017-08-12] MEDS: *HR* Heparin 5,000 UNIT/ML VIAL IVP PRN (19:30)
[2017-08-12] MEDS: amLODIPine 5 MG TABLET PO SCH (20:29)
[2017-08-12] MEDS: Gabapentin 300 MG CAPSULE PO SCH (20:29)
[2017-08-13 02:06] LABS: Eosinophils % 4.8 %; Hematocrit 25.7 % (37.5-50.1); Immature Granulocytes % 0.4 % (0-4); Lymphocytes % 9.3 %; Mean Corpuscular HGB Conc 31.1 g/dL (31.6-35.5); Mean Corpuscular Hemoglobin 28.6 pg (28.0-33.3); Mean Corpuscular Volume 91.8 fL (83.0-100.0); Mean Platelet Volume 11.5 fL (9.4-12.4); Monocytes % 10.8 %; Platelet Count 188 K/mcL (140-400); Red Cell Distribution Width 16.5 % (11.5-14.5)
[2017-08-13 02:07] LABS: Basophils # 0.1 K/mcL (0.0-0.2); Basophils % 0.7 %; Eosinophils # 0.4 K/mcL (0.0-0.6); Lymphocytes # 0.7 K/mcL (0.6-4.6); Monocytes # 0.8 K/mcL (0.0-1.3); Neutrophils # 5.3 K/mcL (1.6-8.9)
[2017-08-13 02:12] LABS: INR 1.8; Prothrombin Time 19.7 Seconds (9.4-12.1)
[2017-08-13 02:20] LABS: Calcium 9.3 mg/dL (8.6-10.3); Potassium 4.8 mEq/L (3.5-5.1)
[2017-08-13 02:28] LABS: Activated Partial Thrombo Time 111.1 Seconds (26.0-36.0)
[2017-08-13 02:58] LABS: Heparin anti-factor XA UFH 0.5 IU/mL (0.30-0.70)
--- NOTE | 2017-08-13 08:30 | Nephrology Progress Note ---
Date of Encounter: 08/13/17 Time of Encounter: 08:15 - Assessment and Plan (1) ESRD (end stage renal disease) on dialysis Current Visit: Yes Status: Chronic INR 1.8. No HD today, eeping MW schedule. If discharged home will dialyze tomorrow in [place]. Subjective Interval history: Sitting on edge of bed, eating breakfast. Wants to go home. Objective - Vital Signs Vital signs: Vital Signs Temp Pulse Resp BP Pulse Ox 08/13/17 07:09 97.6 F 74 16 134/82 95 08/13/17 03:54 98.1 F 78 16 140/77 92 08/12/17 23:24 97.7 F 76 16 139/79 92 08/12/17 19:39 97.9 F 82 16 163/86 97 08/12/17 16:02 98.9 F 83 16 162/97 95 08/12/17 12:50 97.5 F L 18 168/91 08/12/17 12:35 158/91 08/12/17 12:20 163/92 08/12/17 12:05 152/91 08/12/17 11:50 156/89 08/12/17 11:35 155/89 08/12/17 11:05 144/83 08/12/17 10:50 143/80 08/12/17 10:35 149/89 08/12/17 10:20 177/73 08/12/17 10:05 152/84 08/12/17 09:50 140/83 08/12/17 09:35 96.8 F L 18 153/91 Intake and Output 08/12/17 08/13/17 08/13/17 23:59 07:59 15:59 Intake Total 536 / 536 720 / 720 Output Total 0 / 0 Balance 536 / 536 720 / 720 Intake: IV Fluids 176 / 176 240 / 240 Heparin 25,000 UNIT/500 ML D5W 176 / 176 240 / 240 25,000 unit In 500 ml @ 14 UNIT /KG/HR 20.3 mls/hr IVC .Q24H [facility] Rx#:[id number] Oral 360 / 360 480 / 480 Output: Urine 0 / 0 Other: 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, ham sandwich, orange sherbert Percent of Meal Consumed 50% # Voids 1 Weight 69.3 kg Patient Weight 08/13/17 23:59 Weight 69.3 kg - General Appearance General appearance: Present: well-developed, well-nourished, appears started age EENT: Present: mucous membranes moist Neck: Present: no JVD Respiratory: Present: clear Cardiology: Present: no edema, regular rate, regular rhythm Gastrointestinal: Present: normoactive bowel sounds, no tenderness Integumentary: Present: warm and dry Neurologic: Present: alert and oriented x3 - Lab 08/13/17 01:58 08/13/17 01:58 Most recent lab results Calcium 9.3 mg/dL (8.6-10.3) 08/13/17 01:58 - VTE Reasons for not Prescribing Prophylaxis: Medical contraindication Consult Discharge Plan - Plan Additional Instructions: F/up with Coumadin clinic on 08/12/17 F/up with PCP in 1-2 weeks F/up for HD 3 times/week- MWF Referrals: Sanjuana Miner MD [Primary Care Provider] - 08/24/17 2:00 pm (Please follow up as schedule...)
[2017-08-13] MEDS: Heparin 25,000 UNIT/500 ML D5W 25,000 UNIT/500 ML BAG IVC SCH (09:23)
[2017-08-13] MEDS: Calcium Acetate 667 MG CAPSULE PO SCH ×3 (09:39→18:20)
[2017-08-13] MEDS: Renal Vitamin 1 MG CAPSULE PO SCH (09:40)
[2017-08-13] MEDS: *HR* OxyCODONE/APAP 7.5/325 TABLET PO PRN ×2 (09:40→18:24)
[2017-08-13] MEDS: Aspirin 81 MG TAB.CHEW PO SCH (09:40)
[2017-08-13] MEDS: *HR* Heparin 5,000 UNIT/ML VIAL IVP PRN ×2 (09:41→18:34)
--- NOTE | 2017-08-13 14:28 | Internal Med Progress Note ---
Date of Encounter: 08/13/17 Time of Encounter: 12:00 - Assessment and plan (1) Supratherapeutic INR Current Visit: Yes Status: Acute Assessment and plan: Patient's INR is down to 1. 8 compared to 1.9 yesterday.. Given his history of 2 mechanical valves, I will be until her him on a heparin drip. Will dose Coumadin per pharmacy. Check INR in the morning and if it is therapeutic he may be discharged. No signs of bleeding. INR goal is 2.5-3.5. (2) Hyperlipidemia Current Visit: Yes Status: Chronic Qualifiers: Hyperlipidemia type: mixed hyperlipidemia Qualified Code(s): E78.2 - Mixed hyperlipidemia (3) HTN (hypertension) Current Visit: Yes Status: Chronic Qualifiers: Hypertension type: essential hypertension Qualified Code(s): I10 - Essential (primary) hypertension (4) Anemia in chronic kidney disease (CKD) Current Visit: Yes Status: Chronic Qualifiers: Chronic kidney disease stage: on chronic dialysis Qualified Code(s): N18.6 - End stage renal disease; D63.1 - Anemia in chronic kidney disease; D63.1 - Anemia in chronic kidney disease; Z99.2 - Dependence on renal dialysis; Z99.2 - Dependence on renal dialysis; Z99.2 - Dependence on renal dialysis; Z99.2 - Dependence on renal dialysis (5) ESRD (end stage renal disease) on dialysis Current Visit: Yes Status: Chronic (6) Valvular heart disease Current Visit: Yes Status: Chronic (7) Diastolic CHF, chronic Current Visit: Yes Status: Acute (8) DVT prophylaxis Current Visit: Yes Status: Acute - Subjective Interval history: No acute events. The patient has no signs of bleeding. His INR is still subtherapeutic. Started on heparin yesterday. Feels well. Her last yesterday. He has been afebrile. - Constitutional Vitals: Temp Pulse Resp BP Pulse Ox 97.7 F 73 16 128/73 94 08/13/17 11:17 08/13/17 11:17 08/13/17 11:17 08/13/17 11:17 08/13/17 11:17 General appearance: Present: cooperative, A&O X 3, no acute distress, answers questions appropriately Exam: GEN: NAD CVS: RRR. S1, S2, No m/r/g RESP: CTAB ABD: Soft, NT, ND, +BS EXT: No edema. 2+ DP. No rashes NEURO: Nonfocal Internal Medicine: Result - Labs CBC & Chem 7: 08/13/17 01:58 08/13/17 01:58 Labs: Short CBC 08/13/17 Range/Units 01:58 WBC 7.2 (4.3-11.1) K/mcL Hgb 8.0 L (12.9-16.9) g/dL Hct 25.7 L (37.5-50.1) % Plt Count 188 (140-400) K/mcL Neutrophils # 5.3 (1.6-8.9) K/mcL BMP 08/13/17 01:58 Sodium 137 Potassium 4.8 Chloride 99 Carbon Dioxide 31 H BUN 21 H Creatinine 5.37 H Glucose 95 Calcium 9.3 - ABG Interpretation ABG results: PT/INR, D-dimer PT 19.7 Seconds (9.4-12.1) H 08/13/17 01:58 - VTE Reasons for not Prescribing Prophylaxis: Medical contraindication Consult Discharge Plan - Plan Additional Instructions: F/up with Coumadin clinic on 08/12/17 F/up with PCP in 1-2 weeks F/up for HD 3 times/week- MWF Referrals: Sanjuana Miner MD [Primary Care Provider] - 08/24/17 2:00 pm (Please follow up as schedule...)
[2017-08-13] MEDS ORDERED: *HR* Warfarin 2 MG TABLET PO ONE (18:00)
[2017-08-13] MEDS: amLODIPine 5 MG TABLET PO SCH (20:37)
[2017-08-13] MEDS: Gabapentin 300 MG CAPSULE PO SCH (20:37)
[2017-08-14 01:14] LABS: Basophils # 0.1 K/mcL (0.0-0.2); Eosinophils # 0.4 K/mcL (0.0-0.6); Eosinophils % 5.4 %; Hematocrit 27.8 % (37.5-50.1); Hemoglobin 8.8 g/dL (12.9-16.9); Immature Granulocytes % 0.9 % (0-4); Lymphocytes # 0.7 K/mcL (0.6-4.6); Lymphocytes % 9.7 %; Mean Corpuscular HGB Conc 31.7 g/dL (31.6-35.5); Mean Corpuscular Hemoglobin 28.8 pg (28.0-33.3); Mean Corpuscular Volume 90.8 fL (83.0-100.0); Mean Platelet Volume 11.4 fL (9.4-12.4); Monocytes # 0.6 K/mcL (0.0-1.3); Monocytes % 8.7 %; Neutrophils # 5.1 K/mcL (1.6-8.9); Platelet Count 221 K/mcL (140-400); Red Blood Count 3.06 M/mcL (4.19-5.50); Red Cell Distribution Width 16.3 % (11.5-14.5); Segmented Neutrophils % 74.3 %
[2017-08-14 01:21] LABS: INR 1.7; Prothrombin Time 18.9 Seconds (9.4-12.1)
[2017-08-14 01:34] LABS: Calcium 9.5 mg/dL (8.6-10.3); Potassium 5.4 mEq/L (3.5-5.1)
[2017-08-14] MEDS: *HR* OxyCODONE/APAP 7.5/325 TABLET PO PRN ×3 (01:44→21:52)
[2017-08-14 02:25] LABS: Anisocytosis 1+ (Not Present); Burr Cells 2+ (Not Present); Platelet Estimate Normal (Normal); Schistocytes 1+ (Not Present)
[2017-08-14] MEDS: Heparin 25,000 UNIT/500 ML D5W 25,000 UNIT/500 ML BAG IVC SCH ×2 (04:41→23:56)
[2017-08-14] MEDS ORDERED: 0.9 % Sodium Chloride 250 ML IVC PRN (08:59)
[2017-08-14] MEDS ORDERED: 0.9 % Sodium Chloride 1,000 ML PRIME SCH (09:00)
--- NOTE | 2017-08-14 09:11 | Nephrology Progress Note ---
Date of Encounter: 08/14/17 Time of Encounter: 08:45 - Assessment and Plan (1) ESRD (end stage renal disease) on dialysis Current Visit: Yes Status: Chronic INR 1.7. HD today, keeping MWF schedule. Orders given. Subjective Interval history: Sitting up in chair, eating breakfast. Wants to go home. Objective - Vital Signs Vital signs: Vital Signs Temp Pulse Resp BP Pulse Ox 08/14/17 08:15 165/86 08/14/17 07:26 96.8 F L 77 18 207/109 95 08/14/17 04:46 97.8 F 77 16 141/82 93 08/13/17 23:25 98.4 F 70 18 137/75 94 08/13/17 20:15 97.6 F 73 16 160/96 100 08/13/17 16:08 97.5 F L 76 18 140/78 96 08/13/17 11:17 97.7 F 73 16 128/73 94 Intake and Output 08/13/17 08/14/17 08/14/17 23:59 07:59 15:59 Intake Total 207 / 207 293 / 293 Balance 207 / 207 293 / 293 Intake: IV Fluids 207 / 207 293 / 293 Heparin 25,000 UNIT/500 ML D5W 207 / 207 293 / 293 25,000 unit In 500 ml @ 14 UNIT /KG/HR 20.3 mls/hr IVC .Q24H [facility] Rx#:[id number] Oral 0 / 0 0 / 0 Other: Weight 71.825 kg Patient Weight 08/14/17 23:59 Weight 71.825 kg - General Appearance General appearance: Present: well-developed, well-nourished, appears started age EENT: Present: mucous membranes moist Neck: Present: no JVD Respiratory: Present: clear Cardiology: Present: no edema, regular rate, regular rhythm Gastrointestinal: Present: normoactive bowel sounds, no tenderness Integumentary: Present: warm and dry Neurologic: Present: alert and oriented x3 Psychiatric: Present: mood/affect appropriate, cooperative - Lab 08/14/17 00:53 08/14/17 00:53 Most recent lab results Calcium 9.5 mg/dL (8.6-10.3) 08/14/17 00:53 - VTE Reasons for not Prescribing Prophylaxis: Medical contraindication Consult Discharge Plan - Plan Additional Instructions: F/up with Coumadin clinic on 08/12/17 F/up with PCP in 1-2 weeks F/up for HD 3 times/week- MWF Referrals: Sanjuana Miner MD [Primary Care Provider] - 08/24/17 2:00 pm (Please follow up as schedule...)
[2017-08-14] MEDS: Calcium Acetate 667 MG CAPSULE PO SCH ×3 (09:20→18:55)
[2017-08-14] MEDS: Renal Vitamin 1 MG CAPSULE PO SCH (11:42)
[2017-08-14] MEDS: Aspirin 81 MG TAB.CHEW PO SCH (15:16)
[2017-08-14] MEDS ORDERED: 0.9 % Sodium Chloride 1,000 ML ONE (16:01)
[2017-08-14] MEDS ORDERED: *HR* Warfarin 4 MG TABLET PO ONE (18:00)
[2017-08-14] MEDS: amLODIPine 5 MG TABLET PO SCH (21:49)
[2017-08-14] MEDS: Gabapentin 300 MG CAPSULE PO SCH (21:50)
[2017-08-15 04:39] LABS: Prothrombin Time 22.4 Seconds (9.4-12.1)
[2017-08-15 07:13] VITALS: BP 141/82
--- NOTE | 2017-08-15 07:46 | Discharge Summary ---
Date of Encounter: 08/15/17 Time of Encounter: 07:44 - Discharge Diagnosis (1) Supratherapeutic INR Priority: Primary Status: Acute (2) Hyperlipidemia Priority: Secondary Status: Chronic Qualifiers: Hyperlipidemia type: mixed hyperlipidemia Qualified Code(s): E78.2 - Mixed hyperlipidemia (3) HTN (hypertension) Priority: Secondary Status: Chronic Qualifiers: Hypertension type: essential hypertension Qualified Code(s): I10 - Essential (primary) hypertension (4) Anemia in chronic kidney disease (CKD) Priority: Secondary Status: Chronic Qualifiers: Chronic kidney disease stage: on chronic dialysis Qualified Code(s): N18.6 - End stage renal disease; D63.1 - Anemia in chronic kidney disease; D63.1 - Anemia in chronic kidney disease; Z99.2 - Dependence on renal dialysis; Z99.2 - Dependence on renal dialysis; Z99.2 - Dependence on renal dialysis; Z99.2 - Dependence on renal dialysis (5) ESRD (end stage renal disease) on dialysis Priority: Secondary Status: Chronic (6) Valvular heart disease Priority: Secondary Status: Chronic (7) Diastolic CHF, chronic Priority: Secondary Status: Acute - Discharge Medications Home Medications: Oxycodone HCl/Acetaminophen [Percocet 7.5-325 mg Tablet] 1 tab PO Q6H PRN [History] traMADol [Ultram] 50 mg PO TID PRN 12/30/15 [History] Carvedilol [Coreg] 25 mg PO BID #60 tablet 01/01/16 [Rx] Gabapentin [Neurontin] 800 mg PO TID 03/21/16 [History] Aspirin 81 mg PO DAILY 08/04/16 [History] B Complex W-C No.20/Folic Acid [Nephrocaps Softgel] 1 mg PO DAILY 08/04/16 [ History] Calcium Acetate [Phos-LO] 3,335 mg PO TIDWM 08/08/16 [History] Isosorbide DInitrate [Isordil] 20 mg PO TID 08/08/16 [History] Omeprazole [PriLOSEC] 40 mg PO DAILY 08/08/16 [History] Sirolimus [Rapamune] 1 mg PO DAILY 08/10/17 [History] amLODIPine [Norvasc] 5 mg PO HS 08/10/17 [History] Warfarin [Coumadin] 4 mg PO AD 08/11/17 [History] Allergies/Adverse Reactions: 3 Allergy/AdvReac Type Severity Reaction Status Date / Time No Known Allergies Allergy Verified 08/04/16 09:46 Date of admission: 08/10/17 18:19 Primary care physician: Sanjuana Miner MD Consults: 08/11/17 08:15 Consult to Dialysis [CONS] ONCE 08/12/17 08:15 Consult to Dialysis [CONS] ONCE Consult to Dialysis [CONS] ONCE 08/14/17 09:00 Consult to Dialysis [CONS] ONCE - Patient Status Disposition: Home, Self-Care Condition: Good Overall status at discharge: patient is back to baseline - Discharge Instructions Follow Up With: Sanjuana Miner MD [Primary Care Provider] - 08/24/17 2:00 pm (Please follow up as schedule...) Additional Instructions: F/up with Coumadin clinic on 08/17/17 F/up with PCP in 1-2 weeks F/up for HD 3 times/week- MWF - Diet and Activity Activity: increase activity as tolerated Diet: low salt diet (renal) Hospital course: Mr. Steele is a 42 year old male with a PMH of ESRD, M-W-F hemodialysis, CHF, HLD, HTN, and valvular heart disease with 2 mechanical valves (he is on coumadin ). He presents to [facility] today for supratherapeutic INR. He denies any changes to medications or taking extra doses. He admits to being diagnosed with the flu recently. He admits to recent fevers, chills, malaise, and muscle aches. INR on admission was 8.2 which she has received vitamin K. That brought down his INR to 1.9. Continue going down to 1.7. Given his history of mechanical valves either put patient on heparin drip while still dosing Coumadin. The patient was frustrated with his hospital stay as he expected discharge much earlier. I kept the patient and up until his INR was 2.0. My goal was to keep him in hospital up until was 2.5. However given the fact that it has been increasing and now is okay with him discharged with a BMP and INR to be checked on Thursday 08/17. He was stable for discharge on 08/15/2017. He was dialyzed while he was hospitalized on his regular Thursday/Thursday/Thursday dialysis sessions. We had the patient on heparin drip - Time Spent with Patient Total time spent providing and/or coordinating discharge services: Greater than 30 minutes - Constitutional Vitals: Temp Pulse Resp BP Pulse Ox 97.9 F 80 18 141/82 80 08/15/17 07:11 08/15/17 07:11 08/15/17 07:11 08/15/17 07:11 08/15/17 07:11 General appearance: Present: cooperative, A&O X 3, no acute distress, answers questions appropriately Exam: GEN: NAD CVS: RRR. S1, S2, No m/r/g RESP: CTAB ABD: Soft, NT, ND, +BS EXT: No edema. 2+ DP. No rashes NEURO: Nonfocal - VTE Reasons for not Prescribing Prophylaxis: Medical contraindication
[2017-08-15] MEDS: Aspirin 81 MG TAB.CHEW PO SCH (10:49)
[2017-08-15] MEDS: Calcium Acetate 667 MG CAPSULE PO SCH (10:49)
[2017-08-15] MEDS: Renal Vitamin 1 MG CAPSULE PO SCH (10:49)
== END 2017-08-15 11:03 | disposition home or self-care (01) ==
LOC: 2ANU 16:27 → EMEROO 16:27 → 2ANU 18:33 → UNDODISOB 08-15 09:39
PROVIDERS: ADMIT Internal Medicine; ATTEND Internal Medicine